=== PATIENT | female | born 1945 | race Caucasian/White ===

== ENCOUNTER → 2017-03-31 08:35 | Outpatient (CLI) | payer MEDICARE, OTHER, SELFPAY ==
[2017-03-31 09:39] LABS: Hematocrit 40.2 % (37-47); Hemoglobin 13.1 g/dl (12.0-15.0); Mean Corp Hgb Conc 32.6 g/gl (32-36); Mean Corpuscular Hgb 31.4 pg (27.0-32.0); Mean Corpuscular Volume 96.4 fL (81-99); Platelet Count 145 K/mm3 (150-450); RBC Distribution Width SD 45.8 fl (35.1-43.9); Red Blood Count 4.17 M/mm3 (4.2-5.4); White Blood Count 5.1 K/mm3 (4.4-11.0)
[2017-03-31 09:45] LABS: Scan Indicated on CBC? Y/N NO
[2017-03-31 10:00] LABS: Anion Gap 7 (5-15); BUN 19 mg/dL (7-18); BUN/Creat Ratio 27.7 RATIO (10-20); Calcium,Total 8.9 mg/dL (8.5-10.1); Chloride 105 mmol/L (98-107); Creatinine, Serum 0.69 mg/dL (0.55-1.02); EST Glomerular Filtration Rate 90 mL/min (>60); Est Glom Filt Rate - Afr Amer 109 mL/min (>60); Glucose 87 mg/dL (74-106); Potassium 3.9 mmol/L (3.5-5.1); Sodium Level 140 mmol/L (136-145)
== END ==
PROVIDERS: Family Provider Family Medicine; PCP Family Medicine; Visit Provider Internal Medicine Cardiovascular Disease
DX: I34.1 Nonrheumatic mitral (valve) prolapse (principal); R00.2 Palpitations; R06.02 Shortness of breath
CPT/HCPCS: 36415; 80048; 85027

== ENCOUNTER 2017-04-15 15:30 | Outpatient (RCR) | payer MEDICARE, OTHER, SELFPAY ==
--- NOTE | 2016-11-28 14:14 | HP.PTEVAL_ITS ---
Patient's Visit Information GRAHAM SHAH is a 71 year old F referred to Physical Therapy by Vicente Shah with a diagnosis of IMPINGEMENT LEFT SHOULDER. Date of Evaluation: 11/28/16 Physical Therapist: Jonny Miranda PT, - Visit Plan Frequency: 3x /Week Duration: 4 Weeks Plan: manual therapy G-H joint 2-3 ,scap mobs,AAROM/AROM/PROM ,STRENGTHENING RTC /SCAP - Subjective Subjective: This 71 y/o female presents to physical therapy with left shoulder impingment for 3 months. Patient reports no incidious onset of pain. Location of pain grossly referrs to bicep. Describe as ache . Patient reports loss of ROM ,ADL'S and self hygine activities above 90 degrees Pain affects sleeping. Denies parathesia/tingling.Seen chiropractor and PA for exercises. Patient has difficulty reaching behind back.Seen rachel Alarcon.No pain at rest , increases with activity. SOCIAL: . VOCATION: retired nurse - Pain Right Shoulder Pain Intensity (Out of 10): 6 Pain Intensity Range: 10 Comment: activity - Objective POSTURE: rounded shoulders head foward. PALAPTION:mild tender posterior capsule. NEURO: inact ,denies parathesia/tingling. AROM: left shoulder flexion 130 degrees ,abd 90 degrees ,ER 50 degrres,IR 45 degrres. right flexion /abd 160 degrees ,ER 90 degrees. CAPASULAR RESTRICTION: min/mod limited ANTERIOR/POSTERIOR/INFERIOR. SCAPULAR -HUMERAL FUNCTION: < 1:1. MMT: RTC 4/5, deltoid 4-/5,lateral 3+/5, LEFT with pain shoulder abd. FUNCTIONAL TEST: reach behind back L1 - Special Tests L Shoulder Neer - Impingement: Positive L Shoulder Potter Lucas - Impingement: Positive L Shoulder Yeargasons - SLAP: Negative L Shoulder AC Resisted - AC: Negative L Shoulder Shrug Sign - OA/Adhesive Capsulitis: Positive - Goals Goal 1:: Independant with HEP Goal Time Frame: 4-6 Weeks Goal 2:: Independant with posture for ADL'S Goal Time Frame: 4-6 Weeks Goal 3:: Improve AROM shoulder flexion /abd 150 degrees,ER 80 degrres IR 75 degrees to reach behind back and overhead activities by diminshing capsular restriction Goal Time Frame: 4-6 Weeks Goal 4:: Patient improve ablity to perfprm ADL'S self hygine above 90 degrees with min limiations Goal Time Frame: 4-6 Weeks Goal 5:: Increase strength 4/5 deltoid no pain for function - Rehabilitation Potential Physical Therapy Diagnosis: This patient has impingemnt left shoulder along with capsular restriction affects ROM ,. pain ,function with ADLS' thus benifit from skilled PT Rehabilitation Potential: Good - Anticipated Interventions Patient/Client Instruction: Educate patient on: Condition, Plan of Care For the Purpose of:: To decrease pain, To increase ROM, To improve muscle performance and motor function, To improve ability to perform ADL's, To increase tolerance to activity/condition/position, To improve ability of physical actions for home/community/work/leisure, To improve health of tissue, To decrease soft tissue restriction, To increase flexibility/ROM, To prevent re- injury, To improve tolerance to ADL's Therapeutic Exercise to Include: Strength training, Postural training, Flexibilty training, Passive ROM, Active ROM Comment: RTC For the Purpose of:: To decrease pain, To increase ROM, To improve muscle performance and motor function, To improve ability to perform ADL's, To increase tolerance to activity/condition/position, To improve performance and independence with ADL's, To improve ability of physical actions for home/ community/work/leisure, To improve health of tissue, To decrease soft tissue restriction, To increase flexibility/ROM, To prevent re-injury, To improve ability to perform tasks related to life management Manual Therapy Techniques to Include: Mobilization Comment: G-H JOINT2-3 For the Purpose of:: To decrease pain, To increase ROM, To improve nutrient delivery to tissue, To increase oxygenation perfusion, To improve health of tissue, To decrease soft tissue restriction, To increase flexibility/ROM IF ES: Yes Cryotherapy (ice pack, ice massage): Yes Thermo therapy (hot pack): Yes Ultrasound (thermal/non thermal): Yes For the Purpose of:: To decrease pain, To increase ROM, To improve nutrient delivery to tissue, To increase oxygenation perfusion, To improve health of tissue, To decrease soft tissue restriction Thank you for the opportunity to evaluate your patient. For Medicare and Medicare HMO plans, please review the plan of care and approve it. It will need to be FAXED BACK to us at [phone] for Medicare purposes. Please let me know if there are questions or concerns regarding this plan of care. Physician Signature: Date:
--- NOTE | 2016-12-19 13:59 | HP.PTREVAL_ITS ---
Vicente Matute, It has been my pleasure to treat GRAHAM MATUTE over the last 10 visits for IMPINGEMENT LEFT SHOULDER. Please see the progress note below for an update on the physical therapy plan of care! Subjective: Today my shoulder seems worse when I move arm to side,feel clicking in scapular region. Sleeping better. Objective/Function: POSTURE: rounded shoulders head foward. AROM: shoulder flexion 135 degrees,prom ER 70 degrees,abd in scapular plane 120 degrees PAIN WITH OP. MMT: RTC 4-/5 MILD PAIN ,DETOID 3+/5. + IMPINGEMENT. MILD/MOD CAPSULAR RESTRICTION Plan Plan: cont 3x wk for 3weeks Goals Goal 1:: Independant with HEP Goal Time Frame: 4-6 Weeks Goal 2:: Independant with posture for ADL'S Goal Time Frame: 4-6 Weeks Goal Progress: Goal Met Goal 3:: Improve AROM shoulder flexion /abd 150 degrees,ER 80 degrres IR 75 degrees to reach behind back and overhead activities by diminshing capsular restriction Goal Time Frame: 4-6 Weeks Goal 4:: Patient improve ablity to perfprm ADL'S self hygine above 90 degrees with min limiations Goal Time Frame: 4-6 Weeks Goal 5:: Increase strength 4/5 deltoid no pain for function Anticipated Interventions Patient/Client Instruction: Educate patient on: Condition, Plan of Care For the Purpose of:: To decrease pain, To increase ROM, To improve muscle performance and motor function, To improve ability to perform ADL's, To increase tolerance to activity/condition/position, To improve ability of physical actions for home/community/work/leisure, To improve health of tissue, To decrease soft tissue restriction, To increase flexibility/ROM, To prevent re- injury, To improve tolerance to ADL's Therapeutic Exercise to Include: Strength training, Postural training, Flexibilty training, Passive ROM, Active ROM Comment: RTC For the Purpose of:: To decrease pain, To increase ROM, To improve muscle performance and motor function, To improve ability to perform ADL's, To increase tolerance to activity/condition/position, To improve performance and independence with ADL's, To improve ability of physical actions for home/ community/work/leisure, To improve health of tissue, To decrease soft tissue restriction, To increase flexibility/ROM, To prevent re-injury, To improve ability to perform tasks related to life management Manual Therapy Techniques to Include: Mobilization Comment: G-H JOINT2-3 For the Purpose of:: To decrease pain, To increase ROM, To improve nutrient delivery to tissue, To increase oxygenation perfusion, To improve health of tissue, To decrease soft tissue restriction, To increase flexibility/ROM IF ES: Yes Cryotherapy (ice pack, ice massage): Yes Thermo therapy (hot pack): Yes Ultrasound (thermal/non thermal): Yes For the Purpose of:: To decrease pain, To increase ROM, To improve nutrient delivery to tissue, To increase oxygenation perfusion, To improve health of tissue, To decrease soft tissue restriction Please do not hesitate to contact me at [phone] by phone or Fax: if you have questions or concerns regarding this new plan of care! Sincerely, Jonny Miranda PT,
--- NOTE | 2017-01-20 14:35 | HP.PTREVAL_ITS ---
Vicente Matute, It has been my pleasure to treat GRAHAM MATUTE over the last 20 visits for IMPINGEMENT LEFT SHOULDER. Please see the progress note below for an update on the physical therapy plan of care! Subjective: Seen ortrhopedic Has new order ,- otherthan adhesive capsulities. Reviewed MRI - tear. MOBIC -pain is less and sleeping better Objective/Function: POSTURE: MILD THORACIC KYPHOSIS. NEURO: INACT. PALPATION: mild tender AC. AROM: shoulder flexion 140 flexion abd 145 with pain,ER 80 degrees,reach behind back L1. MMT: RTC 4/5 ,SUPRASPINATOUS 4-/5 mild pain, abterior deltoid 4-/5 ,lateral deltoid 3+/5 Plan Plan: cont 3xweek for 3weeks Goals Goal 1:: Independant with HEP Goal Time Frame: 4-6 Weeks Goal 2:: Independant with posture for ADL'S Goal Time Frame: 4-6 Weeks Goal Progress: Goal Met Goal 3:: Improve AROM shoulder flexion /abd 150 degrees,ER 80 degrres IR 75 degrees to reach behind back and overhead activities by diminshing capsular restriction Goal Time Frame: 4-6 Weeks Goal 4:: Patient improve ablity to perfprm ADL'S self hygine above 90 degrees with min limiations Goal Time Frame: 4-6 Weeks Goal 5:: Increase strength 4/5 deltoid no pain for function Anticipated Interventions Patient/Client Instruction: Educate patient on: Condition, Plan of Care For the Purpose of:: To decrease pain, To increase ROM, To improve muscle performance and motor function, To improve ability to perform ADL's, To increase tolerance to activity/condition/position, To improve ability of physical actions for home/community/work/leisure, To improve health of tissue, To decrease soft tissue restriction, To increase flexibility/ROM, To prevent re- injury, To improve tolerance to ADL's Therapeutic Exercise to Include: Strength training, Postural training, Flexibilty training, Passive ROM, Active ROM Comment: RTC For the Purpose of:: To decrease pain, To increase ROM, To improve muscle performance and motor function, To improve ability to perform ADL's, To increase tolerance to activity/condition/position, To improve performance and independence with ADL's, To improve ability of physical actions for home/ community/work/leisure, To improve health of tissue, To decrease soft tissue restriction, To increase flexibility/ROM, To prevent re-injury, To improve ability to perform tasks related to life management Manual Therapy Techniques to Include: Mobilization Comment: G-H JOINT2-3 For the Purpose of:: To decrease pain, To increase ROM, To improve nutrient delivery to tissue, To increase oxygenation perfusion, To improve health of tissue, To decrease soft tissue restriction, To increase flexibility/ROM IF ES: Yes Cryotherapy (ice pack, ice massage): Yes Thermo therapy (hot pack): Yes Ultrasound (thermal/non thermal): Yes For the Purpose of:: To decrease pain, To increase ROM, To improve nutrient delivery to tissue, To increase oxygenation perfusion, To improve health of tissue, To decrease soft tissue restriction Please do not hesitate to contact me at [phone] by phone or Fax: if you have questions or concerns regarding this new plan of care! Sincerely, Jonny Miranda, PT,
--- NOTE | 2017-02-14 09:17 | HP.PTREVAL_ITS ---
Vicente Matute, It has been my pleasure to treat GRAHAM MATUTE over the last 30 visits for IMPINGEMENT LEFT SHOULDER. Please see the progress note below for an update on the physical therapy plan of care! Subjective: Doing much better ..abdle to use arm for overhead activities,. Still wakes me up at night and in the morning. Objective/Function: POSTURE: mild foward posture ,rounded shoulders. AROM: shoulder flexion 150 degrees,abd 160 degrees ,ER 90. MMT: RTC 4/5 ,DELTOID 4-/ 5 mild pain lateral deltoid. FUNCTIONAL TEST: IR BEHIND BACK WFL Plan Plan: cont 3xweek for 3weeks Goals Goal 1:: Independant with HEP Goal Time Frame: 4-6 Weeks Goal Progress: Goal Met Goal 2:: Independant with posture for ADL'S Goal Time Frame: 4-6 Weeks Goal Progress: Progressing Goal 3:: Improve AROM shoulder flexion /abd 1600 degrees,ER 90 degrres IR 75 degrees to reach behind back and overhead activities by diminshing capsular restriction Goal Time Frame: 4-6 Weeks Goal Progress: Progressing Goal 4:: Patient improve ablity to perfprm ADL'S self hygine above 90 degrees with min limiations Goal Time Frame: 4-6 Weeks Goal 5:: Increase strength 4/5 deltoid no pain for function Goal Progress: Progressing Anticipated Interventions Patient/Client Instruction: Educate patient on: Condition, Plan of Care For the Purpose of:: To decrease pain, To increase ROM, To improve muscle performance and motor function, To improve ability to perform ADL's, To increase tolerance to activity/condition/position, To improve ability of physical actions for home/community/work/leisure, To improve health of tissue, To decrease soft tissue restriction, To increase flexibility/ROM, To prevent re- injury, To improve tolerance to ADL's Therapeutic Exercise to Include: Strength training, Postural training, Flexibilty training, Passive ROM, Active ROM Comment: RTC For the Purpose of:: To decrease pain, To increase ROM, To improve muscle performance and motor function, To improve ability to perform ADL's, To increase tolerance to activity/condition/position, To improve performance and independence with ADL's, To improve ability of physical actions for home/ community/work/leisure, To improve health of tissue, To decrease soft tissue restriction, To increase flexibility/ROM, To prevent re-injury, To improve ability to perform tasks related to life management Manual Therapy Techniques to Include: Mobilization Comment: G-H JOINT2-3 For the Purpose of:: To decrease pain, To increase ROM, To improve nutrient delivery to tissue, To increase oxygenation perfusion, To improve health of tissue, To decrease soft tissue restriction, To increase flexibility/ROM IF ES: Yes Cryotherapy (ice pack, ice massage): Yes Thermo therapy (hot pack): Yes Ultrasound (thermal/non thermal): Yes For the Purpose of:: To decrease pain, To increase ROM, To improve nutrient delivery to tissue, To increase oxygenation perfusion, To improve health of tissue, To decrease soft tissue restriction Please do not hesitate to contact me at [phone] by phone or Fax: if you have questions or concerns regarding this new plan of care! Sincerely, Jonny Miranda, PT,
--- NOTE | 2017-03-18 14:10 | HP.PTREVAL_ITS ---
Vicetne Matute, It has been my pleasure to treat GRAHAM MATUTE over the last 40 visits for IMPINGEMENT LEFT SHOULDER. Please see the progress note below for an update on the physical therapy plan of care! Subjective: More sore today in shoulder ,slept well. Doing ADL'S at home Objective/Function: POSTURE: muld thoracic kyphosis. NEURO: intact. PALPATION : : unremarkable. AROM: shoulder flexion 155 degrees,abd 145 degrees,ER 90 ,IR L1. MMT: infraspinatous 4/5,subscap. 4/5 supra 4/5,deltoid 4-/5 slight pain today ,scap 3+/5 Plan Plan: cont 2xweek for 4weeks Goals Goal 1:: Independant with HEP Goal Time Frame: 4-6 Weeks Goal Progress: Goal Met Goal 2:: Independant with posture for ADL'S Goal Time Frame: 4-6 Weeks Goal Progress: Progressing Goal 3:: Improve AROM shoulder flexion /abd 160 degrees,ER 90 degrres IR 75 degrees to reach behind back and overhead activities by diminshing capsular restriction Goal Time Frame: 4-6 Weeks Goal Progress: Progressing Goal 4:: Patient improve ablity to perfprm ADL'S self hygine above 90 degrees with min limiations Goal Time Frame: 4-6 Weeks Goal 5:: Increase strength 4/5 deltoid no pain for function Goal Progress: Progressing Anticipated Interventions Patient/Client Instruction: Educate patient on: Condition, Plan of Care For the Purpose of:: To decrease pain, To increase ROM, To improve muscle performance and motor function, To improve ability to perform ADL's, To increase tolerance to activity/condition/position, To improve ability of physical actions for home/community/work/leisure, To improve health of tissue, To decrease soft tissue restriction, To increase flexibility/ROM, To prevent re- injury, To improve tolerance to ADL's Therapeutic Exercise to Include: Strength training, Postural training, Flexibilty training, Passive ROM, Active ROM Comment: RTC For the Purpose of:: To decrease pain, To increase ROM, To improve muscle performance and motor function, To improve ability to perform ADL's, To increase tolerance to activity/condition/position, To improve performance and independence with ADL's, To improve ability of physical actions for home/ community/work/leisure, To improve health of tissue, To decrease soft tissue restriction, To increase flexibility/ROM, To prevent re-injury, To improve ability to perform tasks related to life management Manual Therapy Techniques to Include: Mobilization Comment: G-H JOINT2-3 For the Purpose of:: To decrease pain, To increase ROM, To improve nutrient delivery to tissue, To increase oxygenation perfusion, To improve health of tissue, To decrease soft tissue restriction, To increase flexibility/ROM IF ES: Yes Cryotherapy (ice pack, ice massage): Yes Thermo therapy (hot pack): Yes Ultrasound (thermal/non thermal): Yes For the Purpose of:: To decrease pain, To increase ROM, To improve nutrient delivery to tissue, To increase oxygenation perfusion, To improve health of tissue, To decrease soft tissue restriction Please do not hesitate to contact me at [phone] by phone or Fax: if you have questions or concerns regarding this new plan of care! Sincerely, Jonny Miranda, PT,
--- NOTE | 2017-05-07 13:32 | HP.PTDCNRP_ITS ---
HP - Discharge Summary (1) - Patient Information GRAHAM SHAH was seen in my office for initial evaluation on 11/28/16. The following Plan of Care was established for this patient: Initial Frequency: 3x /Week Initial Duration: 4 Weeks - Anticipated Interventions Patient/Client Instruction: Educate patient on: Condition, Plan of Care For the Purpose of:: To decrease pain, To increase ROM, To improve muscle performance and motor function, To improve ability to perform ADL's, To increase tolerance to activity/condition/position, To improve ability of physical actions for home/community/work/leisure, To improve health of tissue, To decrease soft tissue restriction, To increase flexibility/ROM, To prevent re- injury, To improve tolerance to ADL's Therapeutic Exercise to Include: Strength training, Postural training, Flexibilty training, Passive ROM, Active ROM For the Purpose of:: To decrease pain, To increase ROM, To improve muscle performance and motor function, To improve ability to perform ADL's, To increase tolerance to activity/condition/position, To improve performance and independence with ADL's, To improve ability of physical actions for home/ community/work/leisure, To improve health of tissue, To decrease soft tissue restriction, To increase flexibility/ROM, To prevent re-injury, To improve ability to perform tasks related to life management Manual Therapy Techniques to Include: Mobilization Comment: G-H JOINT2-3 For the Purpose of:: To decrease pain, To increase ROM, To improve nutrient delivery to tissue, To increase oxygenation perfusion, To improve health of tissue, To decrease soft tissue restriction, To increase flexibility/ROM IF ES: Yes Cryotherapy (ice pack, ice massage): Yes Thermo therapy (hot pack): Yes Ultrasound (thermal/non thermal): Yes For the Purpose of:: To decrease pain, To increase ROM, To improve nutrient delivery to tissue, To increase oxygenation perfusion, To improve health of tissue, To decrease soft tissue restriction This patient was last seen in our office 04/15/17. Pertinent comments regarding their Physical therapy will appear below: This patient seen for PT for left shoulder impingement with adhesive capaulitus focusing on manula therapy G-H JOINT MOBS,stretching,ROM,MODALITIES ,progressed strengthening,RTC/SCAPULAR . Patient also seen head orthopedic team physician and MRI. Patient met goals with ROM/STRENGTH for function. At this point I will be discontinuing this patient from physical therapy. I would be happy to see this patient again in the future if found appropriate by the physician. Thank you! Jonny Miranda, KATHY,
== END 2017-04-15 19:00 | disposition home or self-care (01) ==
LOC: PT 15:30
PROVIDERS: Family Provider Family Medicine; PCP Family Medicine; Visit Provider Family Medicine
DX: M75.02 Adhesive capsulitis of left shoulder (principal); M65.812 Other synovitis and tenosynovitis, left shoulder
CPT/HCPCS: 97014; 97035; 97110; 97140; 97162; 97530; G0283; G8984; G8985

== ENCOUNTER → 2017-09-03 12:32 | Outpatient (CLI) | payer MEDICARE, OTHER, SELFPAY ==
--- NOTE | 2017-09-03 12:56 | RAD_ITS ---
STUDY: X-RAY - ABDOMEN/PELVIS REASON FOR EXAM: Female, 71 years old. Flank pain TECHNIQUE: Single AP view of the abdomen / pelvis. COMPARISON: None. FINDINGS: Normal visualized lung bases. There is a moderate amount of colonic fecal material. There is no demonstrated free abdominal air. The visualized liver, spleen and kidneys are grossly normal in size and morphology. Normal soft tissue structures. Normal visualized osseous structures. RAD/Abdomen Single View IMPRESSION: Constipation. Electronically Signed: Luis Mckeon MD at 16:53 EDT , Service support ,
--- NOTE | 2017-09-03 12:57 | CT_ITS ---
STUDY: CT ABDOMEN AND PELVIS WITH CONTRAST REASON FOR EXAM: Female, 71 years old. Right inguinal pain RADIATION DOSAGE (If Supplied By Facility): CTDIvol = ( 14.5 ) mGy, DLP = ( 655.84 ) mGycm TECHNIQUE: Transaxial images were obtained from the dome of the diaphragm to the symphysis pubis without oral contrast. 80ML ml of Isovue 300 contrast was administered. Sagittal and coronal images were reconstructed. Individualized dose optimization techniques were used for this CT. COMPARISON: None. FINDINGS: The visualized lung bases are unremarkable. The visualized portions of the heart are within normal limits. Multiple low-density likely simple cysts scattered throughout both lobes of the liver except for one in the lower right lobe which has more enhancement pattern suggesting hemangioma. Normal gallbladder and extrahepatic biliary system. Normal spleen. Normal pancreas. Normal bilateral adrenal glands. Normal right kidney. Normal left kidney. Normal visualized stomach. Normal small intestine. There are a few scattered colonic diverticula. The appendix is visualized and appears normal. Appendix best seen on coronal recon image 38. Normal abdominal aorta. Normal inferior vena cava. Normal retroperitoneum. Normal urinary bladder. Normal visualized uterus. There are dilated pelvic vessels suggesting pelvic congestion syndrome Normal abdominal wall. There are mild degenerative changes of the visualized lumbar spine. CT/Abdomen/Pelvis WITH Contrast IMPRESSION: Multiple hypodense liver lesions, likely simple cysts except for one which has the appearance of a hemangioma in the posterior lateral right lobe. No CT evidence of an acute inflammatory process, normal appendix visualized. Sigmoid diverticulosis Dilated pelvic vessels Mild degenerative bony changes Electronically Signed: Francisco Rubio MD at 16:10 EDT , Service support ,
[2017-09-03 13:15] LABS: Absolute Neutrophil Count 9.1 X10^3/uL (2.0-7.7); Basophil# 0.01 X10^3/uL; Basophil% 0.1 % (0-1); Hematocrit 39.5 % (37-47); Hemoglobin 13.3 g/dl (12.0-15.0); Lymphocyte % 9.1 % (19-41); Mean Corp Hgb Conc 33.7 g/gl (32-36); Mean Platelet Vol. 10.7 fl (6.2-12.0); Monocyte# 0.84 X10^3/uL; Monocyte% 7.7 % (0-10); Neutrophil # 9.11 X10^3/uL (2.7-7.7); Platelet Count 133 K/mm3 (150-450); RBC Distribution Width CV 12.8 % (11.6-14.6); RBC Distribution Width SD 44.7 fl (35.1-43.9); Red Blood Count 4.16 M/mm3 (4.2-5.4)
[2017-09-03 13:17] LABS: POSITIVE COUNT NO; POSITIVE DIFFERENTIAL NO; POSITIVE MORPHOLOGY NO
[2017-09-03 13:30] LABS: ALB/GLOB Ratio 1.1 RATIO (0.9-2.4); AST(SGOT) 17 U/L (15-37); Alanine Aminotransfer ALT/SGPT 19 U/L (13-56); Albumin, Serum 3.8 g/dL (3.2-5.0); Alkaline Phosphatase 74 U/L (45-117); Anion Gap 8 (5-15); BUN 12 mg/dL (7-18); BUN/Creat Ratio 15.4 RATIO (10-20); Calcium,Total 9.1 mg/dL (8.5-10.1); Chloride 100 mmol/L (98-107); Creatinine, Serum 0.78 mg/dL (0.55-1.02); EST Glomerular Filtration Rate 78 mL/min (>60); Est Glom Filt Rate - Afr Amer 94 mL/min (>60); Globulin 3.4 g/dL (2.2-4.2); Glucose 105 mg/dL (74-106); Potassium 4.1 mmol/L (3.5-5.1); Protein, Total 7.2 g/dL (6.4-8.2); Sodium Level 136 mmol/L (136-145)
== END ==
PROVIDERS: Family Provider Family Medicine; PCP Family Medicine; Visit Provider Family Medicine
DX: K59.00 Constipation, unspecified (principal); K57.30 Diverticulosis of large intestine without perforation or abscess without bleeding; R50.9 Fever, unspecified
CPT/HCPCS: 36415; 74018; 74177; 80053; 85025; 87086; 87088; 87186; Q9967

== ENCOUNTER 2017-12-28 12:54 | Emergency (ER) | payer MEDICARE, OTHER, SELFPAY ==
[2017-12-28 12:56] VITALS: BP 127/83; PULSE 60; RESP 16; TEMP 36.3; O2SAT 99; BMI 26.5
--- NOTE | 2017-12-28 13:23 | RAD_ITS ---
STUDY: X-RAY - RIGHT KNEE REASON FOR EXAM: Female, 72 years old. Right knee pain today after going downstairs. TECHNIQUE: The view(s) of the knee. COMPARISON: None. FINDINGS: Normal visualized distal femur. Normal visualized proximal tibia and fibula. Normal proximal tibiofibular articulation. There is mild degenerative arthrosis of the medial femorotibial compartment. Normal lateral femorotibial compartment. There is mild degenerative arthrosis of the patellofemoral articulation. Acquired The soft tissue structures are unremarkable. RAD/Knee 3 Views IMPRESSION: Minimal degenerative arthrosis. Electronically Signed: Viraj Serrano DO at 14:41 EST Tel [phone], Service support ,
--- NOTE | 2017-12-28 13:26 | ED.VISSUMM ---
"- ER Visit Summary Date of Service: 12/28/17 Chief Complaint: Right knee pain History of Present Illness: The patient is a 72 F history of mitral valve prolapse and a right posterior knee Wilsl's cyst. Patient states she had a near fall about 2 weeks ago has been having pain in her right knee. She has a known Wills's cyst. She is on the anti-inflammatory meloxicam. Today she was walking down steps at [employer] and had sudden onset of right posterior knee pain. No fall. No injury. No fever. No redness. She has never had near her right lower extremity surgery. It hurts with movement of the knee. Physical Examination: Well-appearing older female. Vital signs are stable. She is afebrile. She does not look septic or toxic. She is in no distress. Her is at bedside. H EENT exam unremarkable. Lungs clear to auscultation bilaterally. Heart regular rate and rhythm. Abdomen soft and nontender. Both upper extremities and left lower extremity are nontender. Normal range of motion. Calves are nontender without edema or cords. Dorsi plantar flexion intact. She is a normal DP pulse to her right foot. Normal touch sensation. Normal motor strength. Her right knee she has pain in the posterior aspect of the knee in the popliteal fossa. She has pain with range of motion. There is no significant effusion. No no redness or warmth. No bony deformity. Right hip is nontender. Test Results: Right knee x-ray mild degenerative arthrosis per the radiologist. My review the x-ray pretty unremarkable. I went over the films with the patient and her . Emergency Department Course and Treatment: Patient treated with 1 p.o. [place] Patient is doing better on repeat exam at 15:20 pm. She has a walker at home. Treatment Plan: Discharged home. Follow-up with Dr. Tyler Anguiano of orthopedics. [place] for pain 20. Disposition: Discharge Impression: Acute right knee pain History of Wills's cyst This note was generated with [employer] dictation software. It may contain incorrect words, spelling, and punctuation that were not noted in review of the chart prior to signing ED Disposition - Plan for ED Patient: Chief Complaint: Lower Extremity Injury Referrals: Vicente Matute MD [Primary Care Provider] -"
--- NOTE | 2017-12-28 13:44 | ED.DCSUM_ITS ---
- ER Visit Summary Date of Service: 12/28/17 Chief Complaint: Right knee pain History of Present Illness: The patient is a 72 F history of mitral valve prolapse and a right posterior knee Wills's cyst. Patient states she had a near fall about 2 weeks ago has been having pain in her right knee. She has a known Wills's cyst. She is on the anti-inflammatory meloxicam. Today she was walking down steps at [employer] and had sudden onset of right posterior knee pain. No fall. No injury. No fever. No redness. She has never had near her right lower extremity surgery. It hurts with movement of the knee. Physical Examination: Well-appearing older female. Vital signs are stable. She is afebrile. She does not look septic or toxic. She is in no distress. Her is at bedside. H EENT exam unremarkable. Lungs clear to auscultation bilaterally. Heart regular rate and rhythm. Abdomen soft and nontender. Both upper extremities and left lower extremity are nontender. Normal range of motion. Calves are nontender without edema or cords. Dorsi plantar flexion intact. She is a normal DP pulse to her right foot. Normal touch sensation. Normal motor strength. Her right knee she has pain in the posterior aspect of the knee in the popliteal fossa. She has pain with range of motion. There is no significant effusion. No no redness or warmth. No bony deformity. Right hip is nontender. Test Results: Right knee x-ray mild degenerative arthrosis per the radiologist. My review the x-ray pretty unremarkable. I went over the films with the patient and her . Emergency Department Course and Treatment: Patient treated with 1 p.o. [place] Patient is doing better on repeat exam at 15:20 pm. She has a walker at home. Treatment Plan: Discharged home. Follow-up with Dr. Tyler Anguiano of orthopedics. [place] for pain 20. Disposition: Discharge Impression: Acute right knee pain History of Wills's cyst This note was generated with [employer] dictation software. It may contain incorrect words, spelling, and punctuation that were not noted in review of the chart prior to signing ED Disposition - Plan for ED Patient: Chief Complaint: Lower Extremity Injury Referrals: Vicente Matute MD [Primary Care Provider] -
[2017-12-28] MEDS: HYDROcodone Bitartrate/Apap 5/325 Tablet PO (13:55)
--- NOTE | 2017-12-28 15:27 | ED.DEP ---
ED Disposition - Plan for ED Patient: Disposition: Home or Assisted Living Chief Complaint: Lower Extremity Injury Instructions: ED Knee Pain [facility] Prescriptions: Hydrocodone Bitart/Apap 5-325 [[place] 5MG-325MG] 1 - 2 tab PO Q4H PRN PRN 7 Days #20 tab PRN Reason: Pain Referrals: Vicente Matute MD [Primary Care Provider] - As Needed Aroldo Anguiano MD [STAFF PHYSICIAN] - As soon as possible Additional Instructions: Ice and elevate right knee to decrease pain and swelling. Either usual meloxicam or Motrin for pain and inflammation. [place] for more severe pain. Follow-up with either the orthopedic doctor or your primary care physician for further evaluation of your knee and possible MRI if not improving.
--- NOTE | 2017-12-28 15:32 | DCINST.ED_ITS ---
ED Disposition - Plan for ED Patient: Disposition: Home or Assisted Living Chief Complaint: Lower Extremity Injury Instructions: ED Knee Pain [facility] Prescriptions: Hydrocodone Bitart/Apap 5-325 [[place] 5MG-325MG] 1 - 2 tab PO Q4H PRN PRN 7 Days #20 tab PRN Reason: Pain Referrals: Vicente Matute MD [Primary Care Provider] - As Needed Aroldo Anguiano MD [STAFF PHYSICIAN] - As soon as possible Additional Instructions: Ice and elevate right knee to decrease pain and swelling. Either usual meloxicam or Motrin for pain and inflammation. [place] for more severe pain. Follow-up with either the orthopedic doctor or your primary care physician for further evaluation of your knee and possible MRI if not improving.
[2017-12-28 15:50] VITALS: BP 124/71; PULSE 65; RESP 15; O2SAT 98
== END 2017-12-28 15:51 | disposition home or self-care (01) ==
PROVIDERS: Emergency Provider Emergency Medicine; Family Provider Family Medicine; PCP Family Medicine
DX: M17.11 Unilateral primary osteoarthritis, right knee (principal); M71.21 Synovial cyst of popliteal space [Baker], right knee; I34.1 Nonrheumatic mitral (valve) prolapse
CPT/HCPCS: 73562; 99284

== ENCOUNTER → 2018-07-21 09:47 | Outpatient (CLI) | payer MEDICARE, OTHER, SELFPAY ==
[2018-07-08 15:34] VITALS: BMI 24.5
--- NOTE | 2018-07-21 09:49 | STEWCON_ITS ---
Reason For Study: CHEST PAIN Stress Results Protocol: Stress Echocardiogram Maximum Predicted HR: 149 bpm Target HR: 127 bpm % Maximum Predicted HR: 109 % DurationHeart Rate Stage (mm:ss) (bpm) BP Comment BASELINE 59 118/70DILUTED DEFINITY 5CC USED DURING STRESS MARSHA PROTOCOL- STAGE 1 3:00 117 120/70NO CP MARSHA PROTOCOL- STAGE 2 3:00 142 118/52SL SOB MARSHA PROTOCOL- STAGE 3 2:15 162 124/62SL SOB, SL CHEST DISCOMFORT,RARE PVCS RECOVERY 81 100/70NO FURTHER CP, ONE VENTRICULAR TRIPLET, COUPLET Stress Duration: 8:15 mm:ss Maximum Stress HR: 162 bpm METS: 9 Baseline Echocardiogram Findings Stress Echo Wall motion Data Resting WM Intermediate WM Stress WM Resting Wall Motion Wall Motion Stress All segments Normal. Anterio-Basal: Hyperkinetic. Ejection Fraction 60 %. Lateral-Basal: Hyperkinetic. Posterior-Basal: Hyperkinetic. Infero-Basal: Hyperkinetic. Basal inferoseptal: Hyperkinetic. Basal anteroseptal: Hyperkinetic. Mid-Anterior : Hyperkinetic. Mid-Lateral : Hyperkinetic. Mid-Posterior: Hyperkinetic. Mid-Inferior: Hypokinetic. Mid-inferoseptal : Hypokinetic. Mid-anteroseptal : Hypokinetic. Anterior [place] : Hyperkinetic. Inferior [place] : Hypokinetic. Lateral [place] : Hyperkinetic. Septall [place] : Hyperkinetic. Ejection Fraction 70 %. Stress Results Heart rate response: appropriate Blodd pressure response: normal resting BP - appropriate response Arrhythmias: occasional PVCs pretest, during exercise, and recovery; isolated ventricular triplet during recovery Functional capacity: good Stopped secondary to: dyspnea. EKG Data Baseline ECG: ectopic atrial rhythm; PVCs; NS T wave abnormality. Exercise ECG: approximately [address] segment depression in leads II, III, aVF, and V3- V6 with ocntinued nonspecific T wave abnormality with resolution towards baseline beginning < 1 minute in recovery. Symptoms with Stress No c/o chest discomfort during exercise / recovery. Interpretation Summary ABNORMAL (ADEQUATE) STRESS ECHOCARDIOGRAM Ordering Physician: Krishna Goss Referring Physician: Krishna Goss Performed By: Bridgett Wick [facility]
--- NOTE | 2018-07-21 09:49 | CT_ITS ---
STUDY: CT CHEST WITH CONTRAST REASON FOR EXAM: Female, 72 years old. Chest and back pain for 6 weeks. RADIATION DOSAGE (If Supplied By Facility): CTDIvol = ( 11.28 ) mGy, DLP = ( 247.45 ) mGycm TECHNIQUE: Transaxial imaging was performed following intravenous administration of 100 IV Isovue 300. Individualized dose optimization techniques were used for this CT. COMPARISON: Chest x-ray March 21, 2016. FINDINGS: The lungs are normal. There is no demonstrated pleural abnormality. Normal heart and pericardium. Normal mediastinum. Normal hilar regions. Normal enhanced pulmonary arteries. Normal aorta arch and descending thoracic aorta. Normal osseous structures. Multiple well-circumscribed hepatic cysts , the largest measuring 2.5 x 2.5 cm and clearly a simple cyst. CT/Chest WITH Contrast IMPRESSION: Normal enhanced CT Chest examination. Multiple hepatic cysts which are likely incidental findings. Electronically Signed: Panfilo Garcia MD at 4:56 EDT , Service support ,
== END ==
PROVIDERS: Family Provider Family Medicine; PCP Family Medicine; Referring Provider Internal Medicine Cardiovascular Disease; Visit Provider Internal Medicine Cardiovascular Disease
DX: I34.1 Nonrheumatic mitral (valve) prolapse (principal); I49.1 Atrial premature depolarization; I49.3 Ventricular premature depolarization; R07.9 Chest pain, unspecified
CPT/HCPCS: 71260; 93017; 93350; Q9957; Q9967; A4216; C8928

== ENCOUNTER → 2018-08-03 10:44 | Outpatient (CLI) | payer MEDICARE, OTHER, SELFPAY ==
[2018-07-08 15:34] VITALS: BMI 24.5
[2018-08-03 07:22] VITALS: BMI 24.5
--- NOTE | 2018-08-03 10:45 | ECHOD_ITS ---
Reason For Study: MVP Procedure This was a 2D Doppler, Color Flow transthoracic echocardiogram. Exam performed in department. Left Ventricle Normal LV size. Left ventricular systolic function is normal. The estimated ejection fraction is 60 %. No regional wall motion abnormalities noted. Right Ventricle Normal RV size. Normal systolic function. Atria The left atrium is moderately enlarged. The right atrium is moderately enlarged. No doppler evidence for ASD. Mitral Valve There is no mitral annular calcification. Moderate diffuse mitral valve thickening. Moderate mitral valve prolapse. Mild-Moderate (1-2+) mitral valve insufficiency. Tricuspid Valve Normal tricuspid valve. Moderate (2+) tricuspid valve insufficiency. Right ventricular systolic pressure estimated to be 27 mmHg. Aortic Valve Trisinus/trileaflet aortic valve. Normal aortic valve. Pulmonic Valve The pulmonic valve is not well visualized. Mild (1+) pulmonic valve insufficiency. Great Vessels Normal sized aortic root. Pericardium/Pleural No pericardial effusion. MMode/2D Measurements & Calculations LVIDd: 4.9 cm IVSd: 0.77 cm Ao root diam: 3.3 cm LVIDs: 2.6 cm LVPWd: 0.83 cm LA dimension: 3.6 cm RVDd: 3.5 cm FS: 46.2 % LAV(MOD-bp): 62.1 ml LA A4 area: 18.7 cm2 RA A4 area: 18.7 cm2 LAV(MOD-bp) Indexed: 39.7 ml/m2 LAV(MOD-sp2): 74.3 ml LAV(MOD-sp4): 50.9 ml Time Measurements MV dec time: 0.28 sec Doppler Measurements & Calculations MV E max gutierrez: 43.4 cm/sec Lat Peak E' Gutierrez: 10.1 cm/sec Med Peak E' Gutierrez: 8.9 cm/sec MV A max gutierrez: 39.9 cm/sec E/E' lat: 4.3 E/E' med: 4.9 MV E/A: 1.1 MV V2 max: 53.9 cm/sec MV P1/2t max gutierrez: 53.9 cm/sec Ao V2 max: 89.3 cm/sec MV max P.2 mmHg MV P1/2t: 129.2 msec Ao max P.2 mmHg MV V2 mean: 28.8 cm/sec MV dec slope: 122.2 cm/sec2 MV mean P.39 mmHg MVA(P1/2t): 1.7 cm2 MV V2 VTI: 22.3 cm LV V1 max: 65.7 cm/sec PA V2 max: 69.0 cm/sec PI end-d gutierrez: 73.1 cm/sec LV V1 max P.7 mmHg TR max gutierrez: 244.1 cm/sec TR max P.8 mmHg Interpretation Summary Left ventricular systolic function is normal. The estimated ejection fraction is 60 %. The left atrium is moderately enlarged. The right atrium is moderately enlarged. Moderate diffuse mitral valve thickening. Moderate mitral valve prolapse. Mild-Moderate (1-2+) mitral valve insufficiency. Moderate (2+) tricuspid valve insufficiency. Mild (1+) pulmonic valve insufficiency. Right ventricular systolic pressure estimated to be 27 mmHg. Transmitral diastolic flow velocities suggest diastolic dysfunction (pseudonormal pattern). Ordering Physician: Krishna Goss Referring Physician: Krishna Goss Performed By: Tahir Boggs RCS
== END ==
PROVIDERS: Family Provider Family Medicine; PCP Family Medicine; Referring Provider Internal Medicine Cardiovascular Disease; Visit Provider Internal Medicine Cardiovascular Disease
DX: I34.1 Nonrheumatic mitral (valve) prolapse (principal); I36.1 Nonrheumatic tricuspid (valve) insufficiency; I49.1 Atrial premature depolarization; I49.3 Ventricular premature depolarization; R07.9 Chest pain, unspecified
CPT/HCPCS: 93306

== ENCOUNTER 2018-08-04 07:50 | Day surgery (SDC) | payer MEDICARE, OTHER, SELFPAY ==
[2018-07-08 15:34] VITALS: BMI 24.5
[2018-07-23 10:36] LABS: Hematocrit 41.3 % (37-47); Hemoglobin 14.2 g/dl (12.0-15.0); Mean Corp Hgb Conc 34.4 g/gl (32-36); Mean Corpuscular Hgb 32.1 pg (27.0-32.0); Mean Corpuscular Volume 93.4 fL (81-99); Mean Platelet Vol. 11.4 fl (6.2-12.0); Platelet Count 148 K/mm3 (150-450); RBC Distribution Width CV 12.5 % (11.6-14.6); RBC Distribution Width SD 41.5 fl (35.1-43.9); Red Blood Count 4.42 M/mm3 (4.2-5.4); Scan Indicated on CBC? Y/N NO; White Blood Count 5.3 K/mm3 (4.4-11.0)
[2018-07-23 10:51] LABS: Partial Thromboplast Time 33.3 Seconds (24.1-36.2); Prothrombin Time (Protime)PT. 13.1 SECONDS (11.7-14.9)
[2018-07-23 11:53] LABS: Anion Gap 8 (5-15); BUN 15 mg/dL (7-18); BUN/Creat Ratio 19.7 RATIO (10-20); Calcium,Total 9.2 mg/dL (8.5-10.1); Chloride 106 mmol/L (98-107); Creatinine, Serum 0.76 mg/dL (0.55-1.02); EST Glomerular Filtration Rate 80 mL/min (>60); Est Glom Filt Rate - Afr Amer 96 mL/min (>60); Glucose 74 mg/dL (74-106); Potassium 4.5 mmol/L (3.5-5.1); Sodium Level 139 mmol/L (136-145)
[2018-08-03 07:22] VITALS: BMI 24.5
--- NOTE | 2018-08-04 09:20 | PCM.HP.BLA ---
Problem List (1) Chest pain Status: Chronic (2) Abnormal stress echocardiogram Status: Chronic (3) Nonrheumatic mitral (valve) prolapse Status: Chronic History and Physical Date of Admission: 08/04/18 H&P addendum: The following is an H&P addendum to the patient's recent outpatient cardiovascular note from 07-08-18. I have examined the patient the following changes are noted: The patient has subsequently undergone evaluation with a stress echocardiogram. This was considered abnormal. The patient was then recommended for further evaluation and care with diagnostic cardiac catheterization. The procedure and risks were discussed with the patient. The patient was agreeable to this approach. This note was generated with [employer] dictation software. It may contain incorrect words, spelling, and punctuation that were not noted in checking the note before signing.
--- NOTE | 2018-08-04 10:02 | CL.D_ITS ---
Patient Name: GRAHAM SHAH Study Date: 08/04/2018 Performing: Krishna Goss MD Ht: 61.81 inches 157 cm : 1945 Wt: 134.48 lbs 61 kg Age: 72 Gender: female BSA: 1.61 PROCEDURE(S) PERFORMED [id number]-HGD/COR/LV CLINICAL PROFILE AND INDICATIONS Indications: Suspected CAD Heart Failure: None Stress/Imaging Date: 07/21/2018Stress Echocardiogram: Positive Angina Classification Anginal Classification w/in 2 Weeks: CCS III CAD Presentations: Other: chest pain / shortness of breath CONCLUSIONS Elevated Left Ventricular End Diastolic Pressure Normal LV size, wall motion,and systolic function LVEF: by LV gram 55 % Normal coronary arteries Mitral Valve Prolapse Mild to Moderate RECOMMENDATIONS Risk factor modification Medical therapy DESCRIPTION OF PROCEDURE The patient arrived to the procedure lab. The risks and benefits of the procedure as well as a full d escription of our services here and current unavailability of surgical backup were fully explained to the patient and/or their significant other prior to the catheterization. The Timeout was completed, verifying the correct patient and procedure. The patient's procedural site was prepped and draped in the usual fashion. Local anesthetic was given subcutaneously to right groin region with Lidocaine 2%. Using a modified Seldinger technique, arterial access was obtained via the right femoral artery, a 4 Fr sheath was inserted Left Coronary Artery selective angiography was performed in multiple views us ing a 4 Fr. JL5 catheter. Right Coronary Artery selective angiography was then performed in multiple views using a 4 Fr. 3DRC catheter. Left Ventriculography was performed in GARNER projection using a 4 Fr . Pigtail catheter. LV to AO pullback pressures were then recorded.The arterial sheath was pulled and manual compression applied until hemostasis is achieved. CORONARY ANGIOGRAPHY DOMINANCE: Left Dominant LEFT HEART ASSESSMENT Left Ventricular Ejection Fraction: by LV Gram 55 % LV wall motion not assessed Elevated Left Ventricular End Diastolic Pressure LVEDP: 16 mmHg LEFT MAIN: Angiographically normal LEFT ANTERIOR DESCENDING ARTERY: Angiographically normal CIRCUMFLEX ARTERY: Angiographically normal RAMUS: Angiographically normal RIGHT CORONARY ARTERY: Angiographically normal VALVE FINDINGS: Normal Aortic Valve function Mitral Valve Prolapse Mild to Moderate AORTIC ROOT: Angiographically normal COMPLICATIONS No Complications PROCEDURE MEDICATIONS Versed 1 mg IV Oxygen: 2 L/min via nasal cannula SUMMARY OF HEMODYNAMIC DATA Time AIR REST ECG 08:12:50 AO 105/63 (84) SA 09:36:43 LV 118/0, 19 09:42:42 LV 108/0, 16 09:42:48 LV 113/-6, 18 09:43:50 LV 117/-6, 18 09:43:57 LVp 116/-7, 15 09:44:03 AOp 117/59 (85) 09:44:08 Signed By Krishna Goss MD On 08/04/2018 10:01:32 Krishna Goss MD
--- NOTE | 2018-08-04 16:24 | HP.PCM_ITS ---
Problem List (1) Chest pain Status: Chronic (2) Abnormal stress echocardiogram Status: Chronic (3) Nonrheumatic mitral (valve) prolapse Status: Chronic History and Physical Date of Admission: 08/04/18 [facility] History of Present Illness Details: GRAHAM SHAH, is a 72 F who presents to the office today for a cardiovascular follow-up. She has a history of mitral valve prolapse, mitral valve regurgitation, PACs, and PVCs. At the present time she states her main concern has been back discomfort which is radiating towards her chest and becoming more prominent in her chest. She does not report radiation to her upper extremities, neck, or jaw. She states that if this can leave her with the sensation of being short of breath. She has not had orthopnea or PND or worsening peripheral pitting edema. She does occasionally note a flutter in her chest. There has been no near syncope or syncope. She states she is concerned based upon having a friend who recently returned from a vacation who is otherwise healthy and now within a short period of time is been diagnosed with CAD. She states she has required CABG. She does not recall any other exertional physical activity prior to the onset of her symptoms. She states her symptoms wax and wane but for the most part have been somewhat present for at least the last 10 days. She had an ECG in the office. She was noted to be in sinus rhythm with a left axis deviation and a possible left anterior fascicular block with poor R wave progression and nonspecific T wave abnormality. In comparison to previous ECG there are similar type changes. Intake Vital Signs 07/08/18 Height 5 ft 2 in 07/08/18 Weight: 134 lb 07/08/18 Body Mass Index (BMI) 24.5 07/08/18 Blood Pressure 92/60 07/08/18 Blood Pressure Location Lt brachial 07/08/18 Blood Pressure Position Sitting 07/08/18 Respiratory Rate 16 07/08/18 Pulse Rate 60 07/08/18 Pulse Source Auscultation Intake Visit Reasons: 1 Y FU [employer] Required: No Accompanied by: Self Allergies No Known Allergies Allergy (Verified 07/08/18 15:35) Medications coenzyme Q10 100 mg capsule 100 mg PO QDAY 06/25/17 [History Confirmed 07/08/18] omega-3 fatty acids 1,000 mg capsule 1,000 mg PO QDAY 05/15/18 [History Confirme d 07/08/18] amoxicillin 500 mg tablet 2,000 mg PO .COMPLEX #4 tab 06/30/18 [Rx Confirmed 07/08/18] glucosamine sulfate 500 mg tablet 1,000 mg PO QHS tab 07/08/18 [History Confirmed 07/08/18] lactobacillus combination no.8 3 billion cell capsule 3,000 mmu cells PO DAILY 07/08/18 [History Confirmed 07/08/18] metoprolol succinate ER 25 mg tablet,extended release 24 hr 12.5 mg PO QDAY tab 07/08/18 [History] [facility] Medical History Non-rheumatic tricuspid valve insufficiency (Acute) Nonrheumatic mitral (valve) insufficiency (Acute) Palpitations (Acute) Nonrheumatic mitral (valve) prolapse (Chronic) SOB (shortness of breath) (Acute) Chest pain (Acute) Atrial premature depolarization (Chronic) Ventricular premature depolarization (Chronic) Surgical History History of tonsillectomy and adenoidectomy (Resolved) Family History Father CVA (cerebral vascular accident) Mother No problems noted. Social History Smoking Status: Never smoker alcohol intake: never substance use type: does not use what type of physical activity do you participate in: none, walking frequency: daily ROS Const Const: Negative for fatigue, weakness, frequent falls, excessive sweating, weight gain or weight loss Eyes Eyes: Negative for transient loss of vision, blurry vision or change in vision ENT ENT: Positive for balance problems (slight unsteadiness); negative for dizziness Cardio Chest Pain: Yes Character: other (pressure midstrnal and aching in back b/w shoulder blades) Location: mid sternal Duration: continuous Palpitations: Yes (occasional) feels like its: fast, other (fluttery) Edema: None Muscle aches with walking: None Resp Respiratory: Positive for SOB with activity (baseline); negative for SOB at rest GI GI: Negative vomiting or vomiting blood/hematemesis : Negative for hematuria Musc Musc: Positive for balance problems (slight unsteadiness); negative for muscle aches/ myalgia, muscle weakness or joint pain Skin Skin: Negative non-healing lesions or rash Neuro Neuro: Negative for dizziness, lightheadedness, orthostatic symptoms, frequent falls, weakness or blurry vision Tulio Hematologic/Lymphatic: Negative for easy bleeding Endo Endo: Negative for fatigue or excessive sweating Psych Psych: Negative for anxiety or depression Allergy Allergy/Immunology: Negative for hives, Negative for rash Cardiology Exam Const Appearance: cooperative, healthy appearing, no acute distress, well developed and well groomed Nutritional Appearance: thin Orientation: alert, awake and oriented x3 Head Head: normal to inspection, normocephalic and atraumatic Ears: hearing grossly normal bilaterally Nose: external nose normal Face and Sinus: face symmetric Mouth: moist mucous membranes Teeth and gingiva: fair dentition Eyes Eyelids: eyelids normal Conjunctivae: conjunctivae normal Pupils: PERRL EOM: EOM intact bilaterally Neck Neck: normal visual inspection, full ROM and no JVD Carotids: Negative bruit Neck Mass: Negative Neck mass Chest Chest inspection: normal inspection of the chest and symmetric chest movement Auscultation: Bilateral: Clear to Auscultation Cardio Palpation: normal PMI Rate: regular rate Rhythm: regular rhythm Heart sounds: S1 normal and S2 normal; negative rub, gallop or murmur GI GI: normal to inspection, soft and bowel sounds present; negative tender Neuro General: alert, awake, oriented x3 and moves all extremities Skin Skin: no rashes or lesions noted Extremities Pulses: Normal: Right Posterior Tibial Pulse, Left Posterior Tibial Pulse, Right Radial Pulse, Left Radial Pulse Lower Extremity Edema: None: Bilateral Psych Psychological: normal affect Assessment & Plan 1. Nonrheumatic mitral (valve) prolapse I34.1 Plan At the present time she will continue outpatient follow-up. It is been over 2 years since her last transthoracic echocardiogram to follow her mitral valve prolapse and MR. Thus she will be established for a follow-up echocardiographic study. Orders Orders: Chest WITH Contrast Today Echo Complete Today Stress Test Echo W/Contrast Today 2. Palpitations R00.2 Plan She does have occasional flutters. This may be related to her previous findings of PACs and PVCs. She will continue her beta-beverly therapy. Orders Orders: 12 Lead EKG performed by BMS Today 3. Premature atrial complexes I49.1 Plan She does have PACs and PVCs. Again she will continue her beta-beverly therapy. Orders Orders: Chest WITH Contrast Today Echo Complete Today Stress Test Echo W/Contrast Today 4. Premature ventricular complex I49.3 Plan She will continue evaluation care as noted above. Orders Orders: Chest WITH Contrast Today Echo Complete Today Stress Test Echo W/Contrast Today 5. Chest pain, unspecified R07.9 Plan Based upon her chest discomfort she will undergo to further studies. She will have a follow-up exercise tolerance test/imaging study such as a stress echocardiogram to compare to her previous stress echocardiogram to evaluate for any obvious stress-induced myocardial ischemia that would warrant further evaluation in the cardiac catheterization laboratory. In the meantime based upon concerns of her\interscapular discomfort superimposed on her history of mitral valve prolapse she will have further evaluation with a chest CT scan. This will be to evaluate for any thoracic aortic disease it would be contributing to her symptoms. Orders Orders: 12 Lead EKG performed by BMS Today Chest WITH Contrast Today Echo Complete Today Stress Test Echo W/Contrast Today Plan Detail Other Orders Orders: Echo Complete Today I36.1 Additional Comments If her studies are otherwise unremarkable then she may need further noncardiac evaluation of her discomfort. Also of her studies are unremarkable she will be scheduled for outpatient follow-up in approximately 1 year. Thank you for allowing me to participate in the care of your patient. Please don't hesitate to call if any issues arise. This note was generated using a voice recognition system and there may be incorrect words, spelling or punctuation that were not noted when reviewing the office note prior to saving. Follow Up 1 Year (PF) I have examined the patient the following changes are noted: The patient has subsequently undergone evaluation with a stress echocardiogram. This was considered abnormal. The patient was then recommended for further evaluation and care with diagnostic cardiac catheterization. The procedure and risks were discussed with the patient. The patient was agreeable to this approach. This note was generated with [employer] dictation software. It may contain incorrect words, spelling, and punctuation that were not noted in checking the note before signing.
== END 2018-08-04 14:20 | disposition home or self-care (01) ==
LOC: CLSP 07:51
PROVIDERS: Family Provider Family Medicine; PCP Family Medicine; Referring Provider Internal Medicine Cardiovascular Disease; Visit Provider Internal Medicine Cardiovascular Disease
DX: I34.1 Nonrheumatic mitral (valve) prolapse (principal); I49.1 Atrial premature depolarization; I49.3 Ventricular premature depolarization; R00.2 Palpitations; R07.9 Chest pain, unspecified; R94.39 Abnormal result of other cardiovascular function study; Z79.899 Other long term (current) drug therapy
CPT/HCPCS: 36415; 80048; 85027; 85610; 85730; 93458; 99152; 99153; J7040; C1769; C1894; Q9967

== ENCOUNTER → 2019-08-05 08:13 | Outpatient (CLI) | payer MEDICARE, OTHER, SELFPAY ==
[2019-06-10 14:57] VITALS: BMI 24.9
[2019-08-05 09:13] LABS: Hematocrit 41.5 % (37-47); Hemoglobin 13.7 g/dL (12.0-15.0); Mean Corpuscular Hgb 31.9 pg (27.0-32.0); Mean Corpuscular Volume 96.7 fL (81-99); Mean Platelet Vol. 11.3 fl (6.2-12.0); Platelet Count 151 K/mm3 (150-450); RBC Distribution Width CV 12.7 % (11.6-14.6); RBC Distribution Width SD 45.1 fl (35.1-43.9); Red Blood Count 4.29 M/mm3 (4.2-5.4)
[2019-08-05 09:36] LABS: AST(SGOT) 18 U/L (15-37); Alanine Aminotransfer ALT/SGPT 21 U/L (13-56); Albumin, Serum 4.1 g/dL (3.2-5.0); Alkaline Phosphatase 62 U/L (45-117); Anion Gap 7 (5-15); BUN 20 mg/dL (7-18); BUN/Creat Ratio 26.2 RATIO (10-20); Bilirubin, Direct 0.22 mg/dL (0.00-0.30); Calcium,Total 9.3 mg/dL (8.5-10.1); Chloride 105 mmol/L (98-107); Cholesterol 202 mg/dL (200); Creatinine, Serum 0.76 mg/dL (0.55-1.02); EST Glomerular Filtration Rate 79 mL/min (>60); Est Glom Filt Rate - Afr Amer 96 mL/min (>60); Globulin 3.1 g/dL (2.2-4.2); Glucose 84 mg/dL (74-106); High Density Lipoprotein 80 mg/dL; Potassium 3.8 mmol/L (3.5-5.1); Protein, Total 7.2 g/dL (6.4-8.2); Sodium Level 140 mmol/L (136-145); Triglycerides 68 mg/dL; Very Low Density Lipoprotein 14 mg/dL (5-40)
== END ==
PROVIDERS: PCP Family Medicine; Referring Provider Internal Medicine Cardiovascular Disease; Visit Provider Internal Medicine Cardiovascular Disease
DX: I49.1 Atrial premature depolarization (principal); I49.3 Ventricular premature depolarization; R00.2 Palpitations; E78.00 Pure hypercholesterolemia, unspecified
CPT/HCPCS: 36415; 80048; 80061; 80076; 85027

== ENCOUNTER → 2019-08-10 08:49 | Outpatient (CLI) | payer MEDICARE, OTHER, SELFPAY ==
[2019-06-10 14:57] VITALS: BMI 24.9
--- NOTE | 2019-08-10 08:51 | ECHOD_ITS ---
Reason For Study: MITRAL VALVE PROLAPSE Procedure This was a 2D Doppler, Color Flow transthoracic echocardiogram. The exam was of adequate technical quality. Exam performed in department. Left Ventricle Normal LV size. Left ventricular systolic function is normal. The estimated ejection fraction is 55 %. No regional wall motion abnormalities noted. Right Ventricle Normal RV size. Normal systolic function. Atria The left atrium is moderately enlarged. The right atrium is severely enlarged. No doppler evidence for ASD. Mitral Valve There is no mitral annular calcification. Moderate diffuse mitral valve thickening. Moderate mitral valve prolapse. Moderate (2+) eccentric mitral valve insufficiency. Tricuspid Valve Normal tricuspid valve. Moderate (2+) tricuspid valve insufficiency. Right ventricular systolic pressure estimated to be 28 mmHg. Aortic Valve Trisinus/trileaflet aortic valve. Normal aortic valve. Pulmonic Valve The pulmonic valve is not well visualized. Mild (1+) pulmonic valve insufficiency. Great Vessels Normal sized aortic root. Pericardium/Pleural Trivial pericardial effusion. There are no echocardiographic indications of cardiac tamponade. MMode/2D Measurements & Calculations LVIDd: 4.6 cm IVSd: 0.76 cm Ao root diam: 3.2 cm LVIDs: 3.1 cm LVPWd: 0.95 cm RVDd: 3.6 cm FS: 30.9 % LAV(MOD-bp): 58.5 ml LVAd ap4: 22.0 cm2 SV(MOD-sp4): 32.4 ml LAV(MOD-bp) Indexed: 36.5 ml/m2 EDV(MOD-sp4): 63.0 ml LAV(MOD-sp2): 64.1 ml EDV(sp4-el): 65.6 ml LAV(MOD-sp4): 52.1 ml LVAs ap4: 13.7 cm2 ESV(MOD-sp4): 30.6 ml ESV(sp4-el): 30.4 ml EF(MOD-sp4): 51.5 % EF(sp4-el): 53.6 % SV(sp4-el): 35.1 ml LA A4 area: 18.2 cm2 LA dimension(2D): 3.7 cm RA A4 area: 22.2 cm2 Time Measurements MV dec time: 0.28 sec Doppler Measurements & Calculations MV E max gutierrez: 51.5 cm/sec Lat Peak E' Gutierrez: 11.5 cm/sec Med Peak E' Gutierrez: 9.8 cm/sec MV A max gutierrez: 36.6 cm/sec E/E' lat: 4.5 E/E' med: 5.3 MV E/A: 1.4 Ao V2 max: 96.6 cm/sec LV V1 max: 67.6 cm/sec PA V2 max: 86.4 cm/sec Ao max P.7 mmHg LV V1 max P.8 mmHg TR max gutierrez: 250.8 cm/sec TR max P.2 mmHg Interpretation Summary Left ventricular systolic function is normal. The estimated ejection fraction is 55 %. The left atrium is moderately enlarged. The right atrium is severely enlarged. Moderate diffuse mitral valve thickening. Moderate mitral valve prolapse. Moderate (2+) eccentric mitral valve insufficiency. Moderate (2+) tricuspid valve insufficiency. Mild (1+) pulmonic valve insufficiency. Trivial pericardial effusion. There are no echocardiographic indications of cardiac tamponade. Right ventricular systolic pressure estimated to be 28 mmHg. Transmitral diastolic flow velocities suggest diastolic dysfunction (pseudonormal pattern). Ordering Physician: Krishna Goss Referring Physician: ANMOL GUTIÉRREZ Performed By: Bridgett Wick RDCS
== END ==
PROVIDERS: PCP Family Medicine; Referring Provider Internal Medicine Cardiovascular Disease; Visit Provider Internal Medicine Cardiovascular Disease
DX: I36.1 Nonrheumatic tricuspid (valve) insufficiency (principal); I34.1 Nonrheumatic mitral (valve) prolapse
CPT/HCPCS: 93306

== ENCOUNTER → 2020-03-22 09:17 | Outpatient (CLI) | payer MEDICARE, OTHER, SELFPAY ==
[2019-09-29 10:01] VITALS: BMI 25.0
[2020-03-22 11:22] LABS: AST(SGOT) 21 U/L (15-37); Alanine Aminotransfer ALT/SGPT 30 U/L (13-56); Albumin, Serum 3.6 g/dL (3.2-5.0); Alkaline Phosphatase 80 U/L (45-117); Bilirubin, Direct 0.08 mg/dL (0.00-0.30); Cholesterol 197 mg/dL (200); Globulin 3.1 g/dL (2.2-4.2); High Density Lipoprotein 66 mg/dL; Protein, Total 6.7 g/dL (6.4-8.2); Triglycerides 97 mg/dL; Very Low Density Lipoprotein 19 mg/dL (5-40)
== END ==
PROVIDERS: PCP Family Medicine; Referring Provider Internal Medicine Cardiovascular Disease; Visit Provider Internal Medicine Cardiovascular Disease
DX: E78.00 Pure hypercholesterolemia, unspecified (principal)
CPT/HCPCS: 36415; 80061; 80076

== ENCOUNTER → 2020-07-13 10:47 | Outpatient (CLI) | payer MEDICARE, OTHER, SELFPAY ==
[2020-07-07 08:59] VITALS: BMI 25.7
--- NOTE | 2020-07-13 10:48 | ECHOD_ITS ---
Reason For Study: DYSPNEA/SOB, MV DISORDER. Procedure This was a 2D Doppler, Color Flow transthoracic echocardiogram. The exam was of adequate technical quality. Exam performed in department. Left Ventricle Normal LV size. Left ventricular systolic function is normal. The estimated ejection fraction is 55 %. No regional wall motion abnormalities noted. Right Ventricle Normal RV size. Normal systolic function. Atria The left atrium is severely enlarged. The right atrium is severely enlarged. No doppler evidence for ASD. Mitral Valve There is no mitral annular calcification. Moderate diffuse mitral valve thickening. Moderate mitral valve prolapse. Moderate (2+) mitral valve insufficiency. Tricuspid Valve Mild diffuse thickening of the tricuspid valve. Moderate (2+) tricuspid valve insufficiency. Right ventricular systolic pressure estimated to be 26 mmHg. Aortic Valve Trisinus/trileaflet aortic valve. Mild focal aortic valve calcification. Pulmonic Valve The pulmonic valve is not well visualized. Mild (1+) pulmonic valve insufficiency. Great Vessels Normal sized aortic root. Pericardium/Pleural No pericardial effusion. MMode/2D Measurements & Calculations LVIDd: 4.4 cm IVSd: 0.90 cm Ao root diam: 3.2 cm LVIDs: 3.2 cm LVPWd: 0.91 cm RVDd: 3.3 cm FS: 27.7 % LAV(MOD-bp): 73.1 ml LA A4 area: 21.4 cm2 LA dimension(2D): 4.2 cm LAV(MOD-bp) Indexed: 45.6 ml/m2 LAV(MOD-sp2): 80.7 ml LAV(MOD-sp4): 60.6 ml RA A4 area: 27.5 cm2 Time Measurements MV dec time: 0.19 sec Doppler Measurements & Calculations MV E max gutierrez: 72.9 cm/sec Lat Peak E' Gutierrez: 13.6 cm/sec Med Peak E' Gutierrez: 11.4 cm/sec MV A max gutierrez: 28.5 cm/sec E/E' lat: 5.4 E/E' med: 6.4 MV E/A: 2.6 Ao V2 max: 77.7 cm/sec LV V1 max: 54.9 cm/sec PA V2 max: 60.0 cm/sec Ao max P.4 mmHg LV V1 max P.2 mmHg PI end-d gutierrez: 91.7 cm/sec TR max gutierrez: 211.2 cm/sec TR max P.9 mmHg ECHO/Echo Complete Interpretation Summary Left ventricular systolic function is normal. The estimated ejection fraction is 55 %. The left atrium is severely enlarged. The right atrium is severely enlarged. Moderate diffuse mitral valve thickening. Moderate mitral valve prolapse. Moderate (2+) mitral valve insufficiency. Mild diffuse thickening of the tricuspid valve. Moderate (2+) tricuspid valve insufficiency. Mild focal aortic valve calcification. Mild (1+) pulmonic valve insufficiency. Right ventricular systolic pressure estimated to be 26 mmHg. Transmitral diastolic flow velocities suggest diastolic dysfunction (pseudonorm al pattern). Ordering Physician: Vicente Martinez Referring Physician: Vicente Jalloh Performed By: Nava Sanderson, AUDREY, RVT
== END ==
PROVIDERS: PCP Family Medicine; Referring Provider Nurse Practitioner Family; Visit Provider Nurse Practitioner Family
DX: I49.1 Atrial premature depolarization (principal); I49.3 Ventricular premature depolarization; I34.0 Nonrheumatic mitral (valve) insufficiency; I36.1 Nonrheumatic tricuspid (valve) insufficiency
CPT/HCPCS: 93225; 93226; 93306

== ENCOUNTER → 2020-08-24 09:51 | Outpatient (CLI) | payer MEDICARE, OTHER, SELFPAY ==
[2020-08-14 06:50] VITALS: BMI 23.6
--- NOTE | 2020-08-24 14:42 | PFTCOMP ---
COMPLETE PULMONARY FUNCTION TEST INTERPRETATION Brief HPI: Patient is a 74 year old female, currently under the care of myself, who presents to [facility] for complete pulmonary function tests secondary to diagnosis of dyspnea. Respiratory therapist reports good effort and reproducible results. Interpretation: Forced expiration spirometry shows no large airways obstructive ventilatory defect with an FEV1 of 101% predicted. There is no significant bronchodilator response by strict ATS criteria. Spirograms are of good quality and plateau normally. The respiratory flow volume loop shows a normal pattern. Lung volumes by body plethysmography show a normal total lung capacity at 4.93 L, 112% predicted. All other lung volumes are within normal limits. Diffusion capacity by carbon monoxide is normal at 84% predicted. The airway resistance is normal. Compared to previous pulmonary function tests from 05/16/16, there has been no significant change. Impression: These pulmonary function tests are grossly within normal limits and showed no significant change compared to study completed 4 years prior.
== END ==
PROVIDERS: PCP Family Medicine; Referring Provider Internal Medicine Critical Care Medicine; Visit Provider Internal Medicine Critical Care Medicine
DX: R06.02 Shortness of breath (principal); I48.91 Unspecified atrial fibrillation
CPT/HCPCS: 94060; 94726; 94729

== ENCOUNTER → 2020-10-24 15:34 | Outpatient (CLI) | payer MEDICARE, OTHER, SELFPAY ==
[2020-10-24 17:49] LABS: Absolute Lymphocyte Count 1.46 X10^3/uL (0.83-4.51); Absolute Neutrophil Count 3.1 X10^3/uL (2.0-7.7); Basophil# 0.04 X10^3/uL; Basophil% 0.8 % (0-1); Eosinophil# 0.07 X10^3/uL; Eosinophils% 1.3 % (0-5); Hematocrit 39.7 % (37-47); Hemoglobin 13.5 g/dL (12.0-15.0); Lymphocyte # 1.46 X10^3/ul (0.83-4.51); Lymphocyte % 27.8 % (19-41); Mean Corpuscular Hgb 32.8 pg (27.0-32.0); Mean Corpuscular Volume 96.6 fL (81-99); Mean Platelet Vol. 11.6 fl (6.2-12.0); Monocyte# 0.53 X10^3/uL; Monocyte% 10.1 % (0-10); NRBC Flagged by Analyzer 0 % (0-5); Neutrophil # 3.14 X10^3/uL (2.7-7.7); Neutrophil % 59.8 % (47-70); Platelet Count 136 K/mm3 (150-450); RBC Distribution Width CV 13.2 % (11.6-14.6); RBC Distribution Width SD 46.8 fl (35.1-43.9); Red Blood Count 4.11 M/mm3 (4.2-5.4); White Blood Count 5.3 K/mm3 (4.4-11.0)
[2020-10-24 18:20] LABS: AST(SGOT) 33 U/L (15-37); Alanine Aminotransfer ALT/SGPT 37 U/L (13-56); Albumin, Serum 3.3 g/dL (3.2-5.0); Alkaline Phosphatase 74 U/L (45-117); Anion Gap 8 (5-15); BUN 17 mg/dL (7-18); BUN/Creat Ratio 25.3 RATIO (10-20); Calcium,Total 9.1 mg/dL (8.5-10.1); Chloride 107 mmol/L (98-107); Cholesterol 182 mg/dL (200); Creatinine, Serum 0.67 mg/dL (0.55-1.02); EST Glomerular Filtration Rate 91 mL/min (>60); Est Glom Filt Rate - Afr Amer 111 mL/min (>60); Globulin 3.4 g/dL (2.2-4.2); Glucose 91 mg/dL (74-106); High Density Lipoprotein 74 mg/dL; Magnesium 2.2 mg/dL (1.6-2.6); Protein, Total 6.7 g/dL (6.4-8.2); Sodium Level 137 mmol/L (136-145); Thyroid Stim Hormone (TSH) 2.51 uIU/mL (0.358-3.74); Triglycerides 151 mg/dL; Very Low Density Lipoprotein 30 mg/dL (5-40)
== END ==
PROVIDERS: PCP Family Medicine; Visit Provider Family Medicine
DX: I48.91 Unspecified atrial fibrillation (principal); E55.9 Vitamin D deficiency, unspecified
CPT/HCPCS: 36415; 80053; 80061; 82306; 83735; 84443; 85025

== ENCOUNTER 2021-04-17 10:55 | Outpatient (CLI) | payer MEDICARE, OTHER, SELFPAY ==
[2021-04-17 12:34] LABS: Erythrocyte Sedimentation Rate 7 mm/hr (0-30)
[2021-04-17 12:38] LABS: Absolute Lymphocyte Count 1.33 X10^3/uL (0.83-4.51); Absolute Neutrophil Count 3.8 X10^3/uL (2.0-7.7); Basophil# 0.03 X10^3/uL; Basophil% 0.5 % (0-1); Eosinophil# 0.05 X10^3/uL; Eosinophils% 0.9 % (0-5); Hematocrit 40.1 % (37-47); Hemoglobin 13.5 g/dL (12.0-15.0); Lymphocyte # 1.33 X10^3/ul (0.83-4.51); Lymphocyte % 23.5 % (19-41); Mean Corp Hgb Conc 33.7 g/dL (32-36); Mean Corpuscular Hgb 32.7 pg (27.0-32.0); Mean Corpuscular Volume 97.1 fL (81-99); Mean Platelet Vol. 10.9 fl (6.2-12.0); Monocyte# 0.49 X10^3/uL; Monocyte% 8.6 % (0-10); NRBC Flagged by Analyzer 0 % (0-5); Neutrophil # 3.75 X10^3/uL (2.7-7.7); Neutrophil % 66.1 % (47-70); Platelet Count 154 K/mm3 (150-450); RBC Distribution Width CV 12.6 % (11.6-14.6); RBC Distribution Width SD 44.9 fl (35.1-43.9); Red Blood Count 4.13 M/mm3 (4.2-5.4); White Blood Count 5.7 K/mm3 (4.4-11.0)
[2021-04-17 12:58] LABS: Vitamin D,25 Hydroxy 32.3 ng/mL
[2021-04-17 13:01] LABS: ALB/GLOB Ratio 1.1 RATIO (0.9-2.4); AST(SGOT) 19 U/L (15-37); Alanine Aminotransfer ALT/SGPT 23 U/L (13-56); Albumin, Serum 3.9 g/dL (3.2-5.0); Alkaline Phosphatase 88 U/L (45-117); Anion Gap 5 (5-15); BUN 17 mg/dL (7-18); BUN/Creat Ratio 26.5 RATIO (10-20); CRP < 2.90 mg/L (0.0-3.0); Calcium,Total 9.7 mg/dL (8.5-10.1); Chloride 104 mmol/L (98-107); Creatinine, Serum 0.64 mg/dL (0.55-1.02); EST Glomerular Filtration Rate 96 mL/min (>60); Est Glom Filt Rate - Afr Amer 116 mL/min (>60); Globulin 3.4 g/dL (2.2-4.2); Glucose 91 mg/dL (74-106); Magnesium 2.3 mg/dL (1.6-2.6); Potassium 4.1 mmol/L (3.5-5.1); Protein, Total 7.3 g/dL (6.4-8.2); Sodium Level 137 mmol/L (136-145)
== END 2021-04-17 23:59 | disposition home or self-care (01) ==
LOC: MTLAB 10:58
PROVIDERS: PCP Family Medicine; Referring Provider Family Medicine; Visit Provider Family Medicine
DX: I48.92 Unspecified atrial flutter (principal); E55.9 Vitamin D deficiency, unspecified
CPT/HCPCS: 36415; 80053; 82306; 83735; 85025; 85652; 86140

== ENCOUNTER 2021-04-26 08:07 | Outpatient (CLI) | payer MEDICARE, OTHER, SELFPAY ==
--- NOTE | 2021-04-26 08:08 | MRI_ITS ---
STUDY: EXAMINATION - MRV BRAIN WITHOUT CONTRAST REASON FOR EXAM: Female, 75 years old. Worsened headaches since February 2021 TECHNIQUE: 3D [id number] (TOF) imaging was performed in a 1.5 aris MRI scanner. COMPARISON: None. FINDINGS: Normal flow within the superior sagittal sinus. Normal flow within the superficial cortical veins. Normal flow within the paired internal cerebral veins, vein of Panda and straight sinus. Normal flow within the bilateral transverse and sigmoid sinuses. Normal flow within the bilateral jugular bulbs. MRI/MRV Head Without Contrast IMPRESSION: Normal unenhanced MRV of the brain. Electronically Signed: Vladislav Gilmore MD at 10:26 EST ,
== END 2021-04-26 23:59 | disposition home or self-care (01) ==
LOC: MRI 08:08
PROVIDERS: PCP Family Medicine; Referring Provider Psychiatry & Neurology Neurology; Visit Provider Psychiatry & Neurology Neurology
DX: R51.9 Headache, unspecified (principal)
CPT/HCPCS: 70544

== ENCOUNTER 2021-05-08 17:39 | Outpatient (CLI) | payer MEDICARE, OTHER, SELFPAY | END 2021-05-08 23:59 | disposition home or self-care (01) | PROVIDERS: PCP Family Medicine; Visit Provider Nurse Practitioner Family | DX: N39.0 Urinary tract infection, site not specified (principal) | CPT/HCPCS: 87086; 87088; 87186 ==

== ENCOUNTER → 2021-08-08 | Outpatient (CLI) | payer MEDICARE, OTHER, SELFPAY | END | disposition home or self-care (01) | PROVIDERS: PCP Family Medicine; Visit Provider Family Medicine | DX: Z20.822 Contact with and (suspected) exposure to COVID-19 (principal) | CPT/HCPCS: 87635; U0003; U0005 ==

== ENCOUNTER → 2021-08-16 | Outpatient (CLI) | payer MEDICARE, OTHER, SELFPAY ==
[2021-08-16 12:30] LABS: Absolute Lymphocyte Count 1.71 X10^3/uL (0.83-4.51); Absolute Neutrophil Count 4.1 X10^3/uL (2.0-7.7); Basophil# 0.04 X10^3/uL; Basophil% 0.6 % (0-1); Eosinophil# 0.04 X10^3/uL; Eosinophils% 0.6 % (0-5); Hematocrit 38.2 % (37-47); Lymphocyte # 1.71 X10^3/ul (0.83-4.51); Lymphocyte % 25.6 % (19-41); Mean Corpuscular Hgb 33.2 pg (27.0-32.0); Mean Corpuscular Volume 97.4 fL (81-99); Mean Platelet Vol. 10.5 fl (6.2-12.0); Monocyte# 0.74 X10^3/uL; Monocyte% 11.1 % (0-10); NRBC Flagged by Analyzer 0 % (0-5); Neutrophil # 4.12 X10^3/uL (2.7-7.7); Neutrophil % 61.7 % (47-70); Platelet Count 179 K/mm3 (150-450); RBC Distribution Width CV 11.9 % (11.6-14.6); RBC Distribution Width SD 42.9 fl (35.1-43.9); Red Blood Count 3.92 M/mm3 (4.2-5.4); White Blood Count 6.7 K/mm3 (4.4-11.0)
[2021-08-16 13:09] LABS: ALB/GLOB Ratio 1.1 RATIO (0.9-2.4); AST(SGOT) 16 U/L (15-37); Alanine Aminotransfer ALT/SGPT 17 U/L (13-56); Albumin, Serum 3.7 g/dL (3.2-5.0); Alkaline Phosphatase 76 U/L (45-117); Anion Gap 8 (5-15); BUN 13 mg/dL (7-18); BUN/Creat Ratio 19.2 RATIO (10-20); Calcium,Total 9.4 mg/dL (8.5-10.1); Chloride 99 mmol/L (98-107); Creatinine, Serum 0.68 mg/dL (0.55-1.02); EST Glomerular Filtration Rate 90 mL/min (>60); Est Glom Filt Rate - Afr Amer 109 mL/min (>60); Globulin 3.3 g/dL (2.2-4.2); Glucose 97 mg/dL (74-106); Potassium 4.1 mmol/L (3.5-5.1); Sodium Level 133 mmol/L (136-145)
[2021-08-16 19:59] LABS: Osmolality, Serum 280 mOsm/KG (280-301)
== END | disposition home or self-care (01) ==
LOC: MFPLAB 10:46
PROVIDERS: PCP Family Medicine; Visit Provider Nurse Practitioner Family
DX: R50.9 Fever, unspecified (principal); R53.83 Other fatigue; E87.1 Hypo-osmolality and hyponatremia
CPT/HCPCS: 36415; 80053; 83930; 85025

== ENCOUNTER → 2021-09-03 | Outpatient (CLI) | payer MEDICARE, OTHER, SELFPAY ==
[2021-09-03 12:30] LABS: Anion Gap 6 (5-15); BUN 12 mg/dL (7-18); BUN/Creat Ratio 16.1 RATIO (10-20); Calcium,Total 9.7 mg/dL (8.5-10.1); Chloride 103 mmol/L (98-107); Creatinine, Serum 0.74 mg/dL (0.55-1.02); EST Glomerular Filtration Rate 81 mL/min (>60); Est Glom Filt Rate - Afr Amer 98 mL/min (>60); Glucose 89 mg/dL (74-106); Potassium 4.1 mmol/L (3.5-5.1); Sodium Level 139 mmol/L (136-145)
== END | disposition home or self-care (01) ==
LOC: MFPLAB 10:52
PROVIDERS: PCP Family Medicine; Visit Provider Nurse Practitioner Family
DX: E87.1 Hypo-osmolality and hyponatremia (principal)
CPT/HCPCS: 36415; 80048

== ENCOUNTER 2021-11-15 09:48 | Inpatient (IN) | payer MEDICARE, OTHER, SELFPAY ==
[2021-11-15] VITALS (14 sets, daily range): BP systolic 78–114; BP diastolic 62–82; PULSE 71–88; RESP 12–20; TEMP 36.2–36.6; O2SAT 96–100; BMI 23.8; BMI 24.9
--- NOTE | 2021-11-15 10:23 | ED.VIS.CHEST ---
HPI History of Present Illness Chief Complaint: Chest Pain Informant: patient Onset/Context/Timing Onset: Yesterday Activity at onset: gradual, light activity and exertion Timing: Intermittent Quality: Positive for Pressure Location: Right Chest and Left Chest Worsened By: Exertion Relieved By: Rest Associated Symptoms: Positive for Dyspnea, Lightheadedness and Palpitations; Negative for Nausea, Vomiting, Diaphoresis, Cough, Fever or Acid Reflux Narrative Narrative: Patient presents with chest pain and palpitations that began yesterday. Patient states that she can feel herself go in and out of atrial fibrillation yesterday. Patient states it seems to be worse whenever she stood up to do any activities. Patient states that when she walked her heart rate went into the 160s. Patient states it goes away with rest. Patient states she feels lightheaded when her heart starts racing. Patient also admits to some shortness of breath with this. Patient admits to some pressure over the upper chest when this occurs. Patient states her blood pressure at home today was low. CVD Risk Factors: Positive for Hypercholesterolemia; Negative for Hypertension, Diabetes, Family History 1' </=55 or Smoking PE Risk Factors: Negative for Recent Travel/Surgery, Recent Immobilization, Prior DVT or PE, Cancer or OCP + Smoking + >/=35 PFSH PFSH Medical History Abnormal stress echocardiogram Atrial fibrillation Atrial premature depolarization Chest pain Heart murmur History of back problems Hx of cataract Hx of headache Migraine without aura and without status migrainosus, not intractable Non-rheumatic tricuspid valve insufficiency Nonrheumatic mitral (valve) insufficiency Nonrheumatic mitral (valve) prolapse Palpitations Pure hypercholesterolemia SOB (shortness of breath) Status post left heart catheterization (LHC) (~08/04/18) UTI (urinary tract infection) Ventricular premature depolarization Vision problems Home Medications omega-3 fatty acids 1,000 mg capsule (Fish Oil Concentrate) 1,000 mg PO QDAY 07/01/17 [History Last Taken Unknown] glucosamine sulfate 500 mg tablet (Glucosamine) 1,000 mg PO QHS 07/08/18 [History Last Taken Unknown] lactobacillus combination no.8 3 billion cell capsule (Adult Probiotic) 3,000 mmu cells PO DAILY 07/08/18 [History Last Taken Unknown] ascorbic acid (vitamin C) 1,000 mg tablet 1 g PO DAILY 09/29/19 [History Last Taken Unknown] zinc acetate 50 mg (zinc) capsule 50 mg PO DAILY 04/13/20 [History Last Taken Unknown] CalciAIM (Ca, Mg, vit C & D) PO 04/17/21 [History Last Taken Unknown] barley juice powder PO 04/17/21 [History Last Taken Unknown] pea protein powder PO 04/17/21 [History Last Taken Unknown] amoxicillin 500 mg tablet 2,000 mg PO .COMPLEX #4 tabs 09/20/21 [Rx Last Taken Unknown] apixaban 5 mg tablet (Eliquis) 5 mg PO BID #180 tabs 09/20/21 [Rx Last Taken Unknown] cholecalciferol (vitamin D3) 50 mcg (2,000 unit) tablet 100 mcg PO DAILY 09/20/21 [History Last Taken Unknown] coenzyme Q10 60 mg capsule 120 mg PO DAILY 09/20/21 [History Last Taken Unknown] flecainide 100 mg tablet 100 mg PO Q12H 10/17/21 [History Last Taken Unknown] Allergy/AdvReac Type Severity Reaction Status Date / Time No Known Allergies Allergy Verified 11/15/21 09:50 Family History Father CVA (cerebral vascular accident) Alcoholism Blood clot in vein Respiratory disease Mother Depression Thyroid disorder Grandmother Diabetes Brother Heart disease Surgical History H/O dilation and curettage History of cardioversion (~01/18/21) History of radiofrequency ablation procedure for cardiac arrhythmia (~01/12/21) History of tonsillectomy and adenoidectomy Social History Smoking Status: Never smoker alcohol intake: never substance use type: does not use what type of physical activity do you participate in: none and walking frequency: daily ROS ROS ED Constitutional Constitutional ED: Denies chills or fever(s) Eyes Eyes: Denies blurry vision or change in vision ENT ENT ED: Reports sore throat; Denies rhinorrhea Cardiovascular Cardiovascular: Reports chest pain and palpitations Respiratory/Chest Respiratory/Chest: Denies cough or dyspnea Gastrointestinal Gastrointestinal: Denies abdominal pain, nausea or vomiting Genitourinary Genitourinary ED: Denies dysuria or hematuria Musculoskeletal Musculoskeletal: Denies back pain or neck pain Integumentary Denies abscess or rash Neurologic Neurologic: Reports headache(s); Denies weakness Allergic/Immunologic Allergic/Immunologic ED: Denies mouth swelling or urticaria EXAM Physical Exam Const Vital Signs: 11/15/21 09:49 11/15/21 10:02 11/15/21 10:14 Temperature 97.8 F Temperature Source Temporal Pulse Rate 85 79 Pulse Rate [Lying] Pulse Rate [Sitting (for 1 minute prior to obtaining)] Pulse Rate [Standing (for 1 minute prior to obtaining)] Respiratory Rate 16 18 Respiratory Effort Normal Non-Labored Blood Pressure 106/81 H 114/82 H Blood Pressure [Lying] Blood Pressure [Sitting (for 1 minute prior to obtaining)] Blood Pressure [Standing (for 1 minute prior to obtaining)] Blood Pressure Mean 89 92 Blood Pressure Mean [Lying] Blood Pressure Mean [Sitting (for 1 minute prior to obtaining)] Blood Pressure Mean [Standing (for 1 minute prior to obtaining)] Pulse Ox 99 96 Oxygen Delivery Method Room Air 11/15/21 10:43 11/15/21 10:46 11/15/21 11:51 Temperature Temperature Source Pulse Rate 78 Pulse Rate [Lying] 75 Pulse Rate [Sitting (for 1 minute prior to obtaining)] 77 Pulse Rate [Standing (for 1 minute prior to obtaining)] 79 Respiratory Rate 15 Respiratory Effort Blood Pressure 89/69 L Blood Pressure [Lying] 98/69 Blood Pressure [Sitting (for 1 minute prior to obtaining)] 98/68 Blood Pressure [Standing (for 1 minute prior to obtaining)] 78/66 L Blood Pressure Mean 75 Blood Pressure Mean [Lying] 78 Blood Pressure Mean [Sitting (for 1 minute prior to obtaining)] 78 Blood Pressure Mean [Standing (for 1 minute prior to obtaining)] 70 Pulse Ox 99 98 Oxygen Delivery Method Room Air Room Air 11/15/21 12:46 Temperature Temperature Source Pulse Rate 76 Pulse Rate [Lying] Pulse Rate [Sitting (for 1 minute prior to obtaining)] Pulse Rate [Standing (for 1 minute prior to obtaining)] Respiratory Rate 16 Respiratory Effort Blood Pressure 98/71 Blood Pressure [Lying] Blood Pressure [Sitting (for 1 minute prior to obtaining)] Blood Pressure [Standing (for 1 minute prior to obtaining)] Blood Pressure Mean 80 Blood Pressure Mean [Lying] Blood Pressure Mean [Sitting (for 1 minute prior to obtaining)] Blood Pressure Mean [Standing (for 1 minute prior to obtaining)] Pulse Ox 98 Oxygen Delivery Method Room Air Positive well nourished and well developed General Appearance ED: well developed and NAD HEENT Reports moist mucous membranes normocephalic and atraumatic Eyes PERRL and EOMs intact bilaterally Neck supple and no JVD Chest Wall palpation of chest normal Resp normal respiratory effort and clear to auscultation bilaterally Effort and Inspection: Negative for respiratory distress Cardio regular rate, regular rhythm and no murmurs GI normal to inspection, nondistended, normoactive bowel sounds, soft to palpation, non-tender and non-distended Extremity normal to inspection General Extremety ED: Negative for edema or tenderness General Extremity: Negative for edema Neuro oriented x3, CN's II-XII intact bilaterally and no sensory deficits noted Sensorium / Orientation: awake and alert Motor Exam: strength 5/5 throughout Psych mental status grossly normal Heart Score History: Moderately Suspicious ECG: Nonspecific Repolarization Age: >/= 65 years Risk Factors: 1 or 2 Risk Factors Troponin: </= Normal Limit Score: 5 MDM MDM MDM Narrative Medical decision making narrative: EKG was obtained. On my interpretation, it showed a normal sinus rhythm with a rate of 81. NV interval was within normal limits. QRS interval was slightly prolonged at 130 ms. QTC was slightly prolonged at 494 ms. There is left axis deviation at -68. There are no acute ST or T wave changes. This was unchanged compared to previous EKG dated 10/19/2021. CBC was within normal limits. PT with INR and PTT were essentially within normal limits. PTT was slightly elevated at 38.5. Basic metabolic profile shows a mild hyponatremia of 133 but was otherwise within normal limits. Initial high-sensitivity troponin was normal at 5. Portable 1 view chest x-ray was obtained. On my interpretation, lung dobbins are clear. There is normal cardiac silhouette. Bony thorax is normal. There is no acute process noted. Radiologist also interpreted the x-ray and agrees. 2-hour repeat troponin was also normal at 6. Orthostatic vital signs were obtained and were within normal limits. Patient maintained in normal sinus rhythm during her entire emergency department stay. Patient has a HEART score of 5. Because of this, I recommended admission to the hospital. Case was discussed with Dr. Goss, her egg grader. He is agreeable with this. Case was discussed with the hospitalist. He will admit the patient for observation. Patient understood and was agreeable with the plan. All questions were answered. Lab Data Attestation: I reviewed the patient's lab results. Labs: Laboratory Results - last 24 hr 11/15/21 11/15/21 11/15/21 10:09 10:09 10:09 WBC 7.1 RBC 4.62 Hgb 15.0 Hct 44.7 MCV 96.8 MCH 32.5 H MCHC 33.6 RDW Std Deviation 44.7 H RDW Coeff of Karina 12.5 Plt Count 161 MPV 11.0 Immature Gran % (Auto) 0.400 Neut % (Auto) 72.6 H Lymph % (Auto) 18.6 L [place] % (Auto) 7.6 Eos % (Auto) 0.4 Baso % (Auto) 0.4 Absolute Neuts (auto) 5.2 Absolute Lymphs (auto) 1.32 Nucleated RBC % 0 PT 14.7 INR 1.2 APTT 38.5 H Sodium 133 L Potassium 4.4 Chloride 100 Carbon Dioxide 26.0 Anion Gap 7 BUN 16 Creatinine 0.87 Estim Creat Clear Calc 44.87 Est GFR (MDRD) Af Amer 82 Est GFR (MDRD) Non-Af 67 BUN/Creatinine Ratio 18.4 Glucose 98 Calcium 9.4 Magnesium 2.0 Troponin I High Sens 5 11/15/21 12:23 WBC RBC Hgb Hct MCV MCH MCHC RDW Std Deviation RDW Coeff of Karina Plt Count MPV Immature Gran % (Auto) Neut % (Auto) Lymph % (Auto) [place] % (Auto) Eos % (Auto) Baso % (Auto) Absolute Neuts (auto) Absolute Lymphs (auto) Nucleated RBC % PT INR APTT Sodium Potassium Chloride Carbon Dioxide Anion Gap BUN Creatinine Estim Creat Clear Calc Est GFR (MDRD) Af Amer Est GFR (MDRD) Non-Af BUN/Creatinine Ratio Glucose Calcium Magnesium Troponin I High Sens 6 Radiography Chest X-Ray - ED: 1 View, Read by ED Physician, Read by Radiologist and No Acute Disease Diagnostic Testing: Clinical Impression(s) from Imaging Studies Chest X-Ray 11/15/21 10:50 IMPRESSION: Hyperinflation. The lungs are clear. Electronically Signed: Jac Villarreal MD at 11:14 EDT , EKG Initial EKG: Attestation: I personally reviewed and interpreted this EKG as follows: Interpretation: Sinus Rhythm (81) and Non-Specific ST Changes Prior EKG tracings: available for review Prior: Unchanged (10/19/2021) Discharge Plan Triage Chief Complaint: Chest Pain ED Provider: Misha Moser Dx/Rx/DC Orders Clinical Impression: Chest pain, Atrial fibrillation, Palpitations Prescriptions: No Action omega-3 fatty acids [Fish Oil Concentrate] 1,000 mg capsule 1,000 mg PO QDAY Adult Probiotic 3 billion cell capsule 3,000 mmu cells PO DAILY glucosamine sulfate [Glucosamine] 500 mg tablet 1,000 mg PO QHS ascorbic acid (vitamin C) 1,000 mg tablet 1 g PO DAILY zinc acetate 50 mg (zinc) capsule 50 mg (zinc) capsule 50 mg PO DAILY Rx Instructions: swallow whole; do not chew/break/dissolve/open barley juice powder PO pea protein powder PO CalciAIM (Ca, Mg, vit C & D) PO cholecalciferol (vitamin D3) 50 mcg (2,000 unit) tablet 100 mcg PO DAILY coenzyme Q10 60 mg capsule 120 mg PO DAILY amoxicillin 500 mg tablet 2,000 mg PO .COMPLEX Qty: 4 3RF Rx Instructions: 2,000 mg PO 1 hour prior to dental procedure Eliquis 5 mg tablet 5 mg PO BID Qty: 180 4RF flecainide 100 mg tablet 100 mg PO Q12H Primary Care Provider: Vicente Huerta Referrals: Vicente Huerta MD [Primary Care Provider] - Disposition Disposition: Acute Care Hospital [facility]
--- NOTE | 2021-11-15 10:31 | EKG12_ITS ---
Test Reason : Blood Pressure : / mmHG Vent. Rate : 081 BPM Atrial Rate : 081 BPM P-R Int : 100 ms QRS Dur : 130 ms QT Int : 426 ms P-R-T Axes : 048 -68 105 degrees QTc Int : 494 ms Sinus rhythm with short MT Left axis deviation Non-specific intra-ventricular conduction block Minimal voltage criteria for LVH, may be normal variant ( [place] product ) Confirmed by SHILO CANSECO, MASON ([id number]), market editor MARGARETH CRENSHAW ([id number]) on 11/16/2021 10:38:40 AM Referred By: TAYA Confirmed By:MASON LAO MD
[2021-11-15 10:39] LABS: Absolute Lymphocyte Count 1.32 X10^3/uL (0.83-4.51); Absolute Neutrophil Count 5.2 X10^3/uL (2.0-7.7); Basophil# 0.03 X10^3/uL; Basophil% 0.4 % (0-1); Eosinophil# 0.03 X10^3/uL; Eosinophils% 0.4 % (0-5); Hematocrit 44.7 % (37-47); Lymphocyte # 1.32 X10^3/ul (0.83-4.51); Lymphocyte % 18.6 % (19-41); Mean Corp Hgb Conc 33.6 g/dL (32-36); Mean Corpuscular Hgb 32.5 pg (27.0-32.0); Mean Corpuscular Volume 96.8 fL (81-99); Monocyte# 0.54 X10^3/uL; Monocyte% 7.6 % (0-10); NRBC Flagged by Analyzer 0 % (0-5); Neutrophil # 5.15 X10^3/uL (2.7-7.7); Neutrophil % 72.6 % (47-70); Platelet Count 161 K/mm3 (150-450); RBC Distribution Width CV 12.5 % (11.6-14.6); RBC Distribution Width SD 44.7 fl (35.1-43.9); Red Blood Count 4.62 M/mm3 (4.2-5.4); White Blood Count 7.1 K/mm3 (4.4-11.0)
[2021-11-15] MEDS: Aspirin 81 MG TAB.CHEW 324 MG PO (10:42)
[2021-11-15 10:45] LABS: International Normalized Ratio 1.2; Prothrombin Time (Protime)PT. 14.7 SECONDS (11.7-14.9)
[2021-11-15 10:46] LABS: Partial Thromboplast Time 38.5 Seconds (24.1-36.2)
--- NOTE | 2021-11-15 10:50 | RAD_ITS ---
STUDY: X-RAY CHEST REASON FOR EXAM: Female, 75 years old. Chest pain. Tachycardia. Hypotension. TECHNIQUE: Single AP portable view of the chest. COMPARISON: Comparison is made with prior study dated 03/21/2016. FINDINGS: EKG electrodes are seen. Hyperinflation. The lungs are clear. There is no demonstrated pleural abnormality. Normal size heart. Normal mediastinum and all. Normal visualized pulmonary arteries. Normal visualized aortic arch and descending thoracic aorta. Normal visualized thoracic spine. Normal visualized ribs, clavicles, and shoulders. There is no demonstrated abnormality of the visualized soft tissue structures of the upper abdomen. RAD/Chest 1 View (Portable) IMPRESSION: Hyperinflation. The lungs are clear. Electronically Signed: Jac Villarreal MD at 11:14 EDT ,
[2021-11-15 10:53] LABS: Anion Gap 7 (5-15); BUN 16 mg/dL (7-18); BUN/Creat Ratio 18.4 RATIO (10-20); Calcium,Total 9.4 mg/dL (8.5-10.1); Chloride 100 mmol/L (98-107); Creatinine, Serum 0.87 mg/dL (0.55-1.02); EST Glomerular Filtration Rate 67 mL/min (>60); Est Glom Filt Rate - Afr Amer 82 mL/min (>60); Estimated Creatinine Clearance 44.87 ml/min; Glucose 98 mg/dL (74-106); Potassium 4.4 mmol/L (3.5-5.1); Sodium Level 133 mmol/L (136-145); Troponin-I HS (w/2H Reflex) 5 pg/mL (3.0-54.0)
[2021-11-15 12:37] LABS: Reflex Troponin-HS? (from REC) Y
[2021-11-15 13:04] LABS: Troponin-I HS 6 pg/mL (3.0-54.0)
--- NOTE | 2021-11-15 15:55 | HP.PCM.HOS_ITS ---
HPI - General General Date of Admission: 11/15/21 Date of Service: 11/15/21 Chief Complaint: Chest pain HPI Narrative GRAHAM SHAH, is a 75 F who presents to the emergency room at [facility] after being directed there from her cdl service technician office, she has had episodic chest pain since yesterday, this appears to last a few minutes, she describes it as pressure-like in nature and across her upper chest, she stated she had some radiation down her left arm. She states the discomfort appears to be brought on by exertion and goes away at rest. Patient also states that she had a drop in her blood pressure yesterday while standing-she states she has a blood pressure monitor at home. Patient stated today she felt as if her heart was racing at times when she stood up. Patient underwent a cardiac catheterization approximately 3 years ago which showed no evidence of coronary artery disease, her cardiac history is remarkable for an ablation in the past due to atrial fibrillation. She sees an house director in [place]. Work-up in the emergency room included an EKG which showed normal sinus rhythm without evidence of ischemic changes, chest x-ray was unremarkable, cardiac enzymes were normal. Patient was placed in observation status for chest pain, cardiac enzymes will be cycled, if they remain negative she will undergo a treadmill nuclear stress test tomorrow. I talked with her cdl service technician here (Dr. Goss) concerning her care. [facility] Medical History Abnormal stress echocardiogram Atrial fibrillation Atrial premature depolarization Chest pain Heart murmur History of back problems Hx of cataract Hx of headache Migraine without aura and without status migrainosus, not intractable Non-rheumatic tricuspid valve insufficiency Nonrheumatic mitral (valve) insufficiency Nonrheumatic mitral (valve) prolapse Palpitations Pure hypercholesterolemia SOB (shortness of breath) Status post left heart catheterization (LHC) (~08/04/18) UTI (urinary tract infection) Ventricular premature depolarization Vision problems Home Medications omega-3 fatty acids 1,000 mg capsule (Fish Oil Concentrate) 2,000 mg PO DAILY SUPPLEMENT 07/01/17 [History Last Taken 11/14/21] glucosamine sulfate 500 mg tablet (Glucosamine) 1,000 mg PO QHS 07/08/18 [Histo ry Last Taken 11/14/21] lactobacillus combination no.8 3 billion cell capsule (Adult Probiotic) 3,000 mmu cells PO DAILY HEALTH MAINTENANCE 07/08/18 [History Last Taken 11/14/21] ascorbic acid (vitamin C) 1,000 mg tablet 1 g PO DAILY supplement 09/29/19 [History Last Taken 11/14/21] CalciAIM (Ca, Mg, vit C & D) 1 tspn PO DAILY SUPPLEMENT 04/17/21 [History Last Taken 11/14/21] barley juice powder 1 tspn PO DAILY supplement 04/17/21 [History Last Taken 11/14/21] pea protein powder 1 tspn PO DAILY SUPPLEMENT 04/17/21 [History Last Taken 11/14/21] apixaban 5 mg tablet (Eliquis) 5 mg PO BID #180 tabs 09/20/21 [Rx Last Taken 11/15/21] cholecalciferol (vitamin D3) 50 mcg (2,000 unit) tablet 100 mcg PO DAILY SUPPLEMENT 09/20/21 [History Last Taken 11/15/21] coenzyme Q10 60 mg capsule 120 mg PO DAILY SUPPLEMENT 09/20/21 [History Last Taken 11/14/21] flecainide 100 mg tablet 100 mg PO Q12H 10/17/21 [History Last Taken 11/15/21] acetaminophen 500 mg tablet 500 - 1,000 mg PO DAILY PRN Pain 11/15/21 [History Last Taken 3 Days Ago ~11/12/21] zinc acetate 50 mg (zinc) capsule 50 mg PO DAILY SUPPLEMENT 11/15/21 [History Last Taken 11/14/21] Allergy/AdvReac Type Severity Reaction Status Date / Time No Known Allergies Allergy Verified 11/15/21 09:50 Family History Father CVA (cerebral vascular accident) Alcoholism Blood clot in vein Respiratory disease Mother Depression Thyroid disorder Grandmother Diabetes Brother Heart disease Surgical History H/O dilation and curettage History of cardioversion (~01/18/21) History of radiofrequency ablation procedure for cardiac arrhythmia (~01/12/21) History of tonsillectomy and adenoidectomy Social History Smoking Status: Never smoker alcohol intake: never substance use type: does not use what type of physical activity do you participate in: none and walking frequency: daily ROS Constitutional Constitutional: Denies anorexia, change in weight, fever(s), night sweats or weakness Eyes Eyes: Denies blurry vision, change in vision, discharge from eye(s) or eye pain Cardiovascular Cardiovascular: Reports chest pain, palpitations and rapid heart rate; Denies claudication, edema or lightheadedness Respiratory/Chest Respiratory/Chest: Denies cough, hemoptysis, shortness of breath at rest or shortness of breath with exertion Gastrointestinal Gastrointestinal: Denies abdominal pain, constipation, diarrhea, hematemesis, hematochezia, melena, nausea or vomiting Genitourinary Genitourinary: Denies dysuria, hematuria, urinary frequency, urinary hesitancy, urinary incontinence or urinary urgency Musculoskeletal Musculoskeletal: Denies back pain, joint pain, joint stiffness, joint swelling, myalgias or neck pain Neurologic Neurologic: Denies abnormal gait, abnormal speech, confusion, dizziness, focal weakness, headache(s), loss of vision, numbness, other visual disturbances, paresthesias, syncope or tingling Psychiatric Psychiatric: Denies anxiety, cognitive impairment, depression, irritability, mood swings or suicidal ideation Endocrine Endocrinology: Denies change in body appearance, cold intolerance, excessive sweating, heat intolerance, polydipsia or polyuria Hematologic/Lymphatic Hematologic/Lymphatic: Denies none, anemia, easy bleeding, easy bruising or lymphadenopathy Allergic/Immunologic Allergic/Immunologic: Denies rhinitis, urticaria, eczemia or asthma Vital Signs Vital Signs Vital Signs: 11/15/21 09:49 11/15/21 10:02 11/15/21 10:14 Temperature 97.8 F Temperature Source Temporal Pulse Rate 85 79 Pulse Rate [Lying] Pulse Rate [Sitting (for 1 minute prior to obtaining)] Pulse Rate [Standing (for 1 minute prior to obtaining)] Respiratory Rate 16 18 Respiratory Effort Normal Non-Labored Blood Pressure 106/81 H 114/82 H Blood Pressure [Lying] Blood Pressure [Sitting (for 1 minute prior to obtaining)] Blood Pressure [Standing (for 1 minute prior to obtaining)] Blood Pressure Mean 89 92 Blood Pressure Mean [Lying] Blood Pressure Mean [Sitting (for 1 minute prior to obtaining)] Blood Pressure Mean [Standing (for 1 minute prior to obtaining)] Blood Pressure Source Blood Pressure Position Blood Pressure Location Pulse Ox 99 96 Oxygen Delivery Method Room Air 11/15/21 10:43 11/15/21 10:46 11/15/21 11:51 Temperature Temperature Source Pulse Rate 78 Pulse Rate [Lying] 75 Pulse Rate [Sitting (for 1 minute prior to obtaining)] 77 Pulse Rate [Standing (for 1 minute prior to obtaining)] 79 Respiratory Rate 15 Respiratory Effort Blood Pressure 89/69 L Blood Pressure [Lying] 98/69 Blood Pressure [Sitting (for 1 minute prior to obtaining)] 98/68 Blood Pressure [Standing (for 1 minute prior to obtaining)] 78/66 L Blood Pressure Mean 75 Blood Pressure Mean [Lying] 78 Blood Pressure Mean [Sitting (for 1 minute prior to obtaining)] 78 Blood Pressure Mean [Standing (for 1 minute prior to obtaining)] 70 Blood Pressure Source Blood Pressure Position Blood Pressure Location Pulse Ox 99 98 Oxygen Delivery Method Room Air Room Air 11/15/21 12:46 11/15/21 13:32 11/15/21 14:30 Temperature 97.1 F L 97.5 F L Temperature Source Temporal Temporal Pulse Rate 76 78 79 Pulse Rate [Lying] Pulse Rate [Sitting (for 1 minute prior to obtaining)] Pulse Rate [Standing (for 1 minute prior to obtaining)] Respiratory Rate 16 20 H 20 H Respiratory Effort Blood Pressure 98/71 106/81 H 101/73 Blood Pressure [Lying] Blood Pressure [Sitting (for 1 minute prior to obtaining)] Blood Pressure [Standing (for 1 minute prior to obtaining)] Blood Pressure Mean 80 89 82 Blood Pressure Mean [Lying] Blood Pressure Mean [Sitting (for 1 minute prior to obtaining)] Blood Pressure Mean [Standing (for 1 minute prior to obtaining)] Blood Pressure Source Monitor Blood Pressure Position Semi-Fowlers Blood Pressure Location Right Arm Pulse Ox 98 100 100 Oxygen Delivery Method Room Air Room Air Room Air 11/15/21 14:51 11/15/21 15:13 11/15/21 15:08 Temperature Temperature Source Pulse Rate 80 Pulse Rate [Lying] 71 Pulse Rate [Sitting (for 1 minute prior to obtaining)] Pulse Rate [Standing (for 1 minute prior to obtaining)] Respiratory Rate Respiratory Effort Blood Pressure Blood Pressure [Lying] 107/82 H Blood Pressure [Sitting (for 1 minute prior to obtaining)] 86/73 L Blood Pressure [Standing (for 1 minute prior to obtaining)] Blood Pressure Mean Blood Pressure Mean [Lying] 90 Blood Pressure Mean [Sitting (for 1 minute prior to obtaining)] 77 Blood Pressure Mean [Standing (for 1 minute prior to obtaining)] Blood Pressure Source Blood Pressure Position Blood Pressure Location Pulse Ox Oxygen Delivery Method Room Air 11/15/21 15:46 Temperature 97.1 F L Temperature Source Temporal Pulse Rate 81 Pulse Rate [Lying] Pulse Rate [Sitting (for 1 minute prior to obtaining)] Pulse Rate [Standing (for 1 minute prior to obtaining)] Respiratory Rate 12 Respiratory Effort Blood Pressure 100/62 Blood Pressure [Lying] Blood Pressure [Sitting (for 1 minute prior to obtaining)] Blood Pressure [Standing (for 1 minute prior to obtaining)] Blood Pressure Mean 74 Blood Pressure Mean [Lying] Blood Pressure Mean [Sitting (for 1 minute prior to obtaining)] Blood Pressure Mean [Standing (for 1 minute prior to obtaining)] Blood Pressure Source Monitor Blood Pressure Position Semi-Fowlers Blood Pressure Location Left Arm Pulse Ox 97 Oxygen Delivery Method Room Air Weight Weight: 61.8 kg Body Mass Index (BMI) 24.9 Physical Exam Const alert, oriented x3, no apparent distress, average body habitus and healthy appearing General Appearance: cooperative, well kempt and well developed Orientation / Consciousness: awake, oriented to person, oriented to place and oriented to time HEENT normocephalic, head/scalp atraumatic, hearing grossly normal bilaterally and moist oral mucous membranes Eyes PERRL, EOMs intact bilaterally and conjunctivae normal Neck supple, no JVD, thyroid normal and no carotid bruits General: trachea midline Resp normal respiratory effort, no retractions, no use of accessory muscles and clear to auscultation bilaterally Auscultation: Negative for rales, rhonchi or wheezes Cardio regular rate, regular rhythm, S1 normal heart sound, S2 normal heart sound, no murmurs, no rub and no gallops GI normal to inspection, nondistended, normoactive bowel sounds, soft to palpation, non-tender and non-distended Extremity no clubbing, cyanosis or edema Skin no rashes or lesions noted General Skin Exam: no breakdown Neuro oriented x3, CN's II-XII intact bilaterally, no focal motor deficits and no sensory deficits noted Sensorium / Orientation: awake and alert Speech: speech normal Psych affect normal Results Lab / Micro Data Result Diagrams: 11/15/21 10:09 11/15/21 10:09 Labs: Laboratory Results - last 24 hr 11/15/21 10:09: WBC 7.1, RBC 4.62, Hgb 15.0, Hct 44.7, MCV 96.8, MCH 32.5 H, MCHC 33.6, RDW Std Deviation 44.7 H, RDW Coeff of Karina 12.5, Plt Count 161, MPV 11.0, Immature Gran % (Auto) 0.400, Neut % (Auto) 72.6 H, Lymph % (Auto) 18.6 L, [place] % (Auto) 7.6, Eos % (Auto) 0.4, Baso % (Auto) 0.4, Absolute Neuts (auto) 5.2, Absolute Lymphs (auto) 1.32, Nucleated RBC % 0 11/15/21 10:09: PT 14.7, INR 1.2, APTT 38.5 H 11/15/21 10:09: Sodium 133 L, Potassium 4.4, Chloride 100, Carbon Dioxide 26.0, Anion Gap 7, BUN 16, Creatinine 0.87, Estim Creat Clear Calc 44.87, Est GFR (MDRD) Af Amer 82, Est GFR (MDRD) Non-Af 67, BUN/Creatinine Ratio 18.4, Glucose 98, Calcium 9.4, Magnesium 2.0, Troponin I High Sens 5 11/15/21 12:23: Troponin I High Sens 6 Radiology Impression Chest X-Ray 11/15/21 10:50 IMPRESSION: Hyperinflation. The lungs are clear. Electronically Signed: Jca Villarreal MD at 11:14 EDT , Assessment & Plan Assessment/Plan (1) Chest pain: PLAN: Plan 1. Precordial chest pain-etiology unclear, patient will be placed in observation status on PCU, cardiac enzymes will be cycled, she will undergo a treadmill nuclear stress test tomorrow if enzymes remain normal. #2 history of atrial fibrillation-status post ablation 2020-patient will be monitored on telemetry, patient is currently on antiarrhythmics #3 moderate mitral valve insufficiency-complicates care, management, recovery, and prognosis Charges/Coding Visit Charges OBSV E&M: 07010 Initial observation care L3
[2021-11-15 16:47] LABS: Troponin-I HS 5 pg/mL (3.0-54.0)
[2021-11-15] MEDS: Acetaminophen 325 MG Tablet 650 MG PO (23:29)
[2021-11-15] MEDS: Flecainide 100 MG Tablet PO (23:30)
[2021-11-15] MEDS: APIXABAN 5 MG TABLET PO (23:30)
[2021-11-16] VITALS (10 sets, daily range): BP systolic 69–118; BP diastolic 52–73; PULSE 66–104; RESP 16–18; TEMP 36.3–36.5; O2SAT 94–97; BMI 24.9
[2021-11-16] MEDS: 0.9% Saline Lock 10 ML Syringe IV ×2 (06:40→22:28)
[2021-11-16] MEDS: Flecainide 100 MG Tablet PO ×2 (06:42→22:17)
--- NOTE | 2021-11-16 09:22 | PCM.CONS.C ---
Assessment & Plan Assessment/Plan (1) Chest pain: PLAN: The patient presents with chest discomfort. It appears somewhat atypical. She has undergone previous noninvasive and invasive valuation as noted. At the present time her cardiac enzymes are negative. Her ECG demonstrates no new acute ECG changes. She is scheduled for upcoming stress nuclear imaging study to further evaluate for any obvious evidence of myocardial ischemia. Depending upon the findings she may or may not need further cardiac evaluation. (2) History of radiofrequency ablation procedure for cardiac arrhythmia: PLAN: She has a history of atrial fibrillation. She has undergone EPS/RFA. She has had recurrence of atrial fibrillation/flutter. This is despite being on medical management including antiarrhythmic therapy. At the present time she will need to continue medical management which would include rate control therapy as deemed appropriate as well as her antiarrhythmic therapy which does seem to assist as she has episodes of sinus rhythm and then paroxysmal atrial fibrillation/flutter. She will continue her anticoagulant therapy unless it needs to be interrupted for an invasive procedure. Otherwise she should maintain contact with her [facility] nuclear control operator to be considered for possible repeat EPS/RFA. (3) Nonrheumatic mitral (valve) prolapse: PLAN: She has a history of MVP. She has undergone noninvasive valuation in the past. She will continue to be followed. (4) Pure hypercholesterolemia: PLAN: She has a history of hyperlipidemia. She is continuing dietary therapy and exercise at this time. Addt'l Comments The patient's case has been discussed and reviewed with the patient and previously with Dr. Walker. This note was generated using a voice recognition system and there may be incorrect words, spelling or punctuation that were not noted when reviewing the office note prior to saving. HPI Consult Data Date of Consult: 11/16/21 HPI Narrative HPI Narrative: GRAHAM SHAH, is a 75 year old white female who presents for cardiovascular consultation for concerns of chest discomfort, fluctuations in her cardiac rate and rhythm, and concerns of changes in her blood pressure with intermittent positional hypotension superimposed upon a history of underlying PACs, PVCs, atrial fibrillation status post [facility] EPS/RFA (01-12-2021), MVP/MR, and hyperlipidemia. She has been having issues at home with intermittent discomforts across her chest where she feels like she has a vague discomfort which is hard to describe. She notes it comes and goes. She believes it may be associated at times with changes in her underlying cardiac rate and rhythm. She does since changes in her rate and rhythm at times. She also notes that she has had symptoms of hypotension especially with positional changes such as being up and ambulating or in the shower. She has not lost consciousness. Otherwise when these episodes not happening she states she feels well. There is been no orthopnea or PND or peripheral pitting edema. Based upon ongoing issues with her cardiac rate and rhythm and her medications she has made contact with her [facility] nuclear control operator - Dr. Malvin Greene. She is waiting to hear from his office follow-up recommendations, etc. including the need for possible repeat EPS/RFA. In the interim based upon her symptoms she contacted the office yesterday. She was asked to report to the emergency department for further evaluation and care. There her cardiac enzymes were negative. Her ECG appeared to demonstrate sinus rhythm with a left axis deviation with nonspecific IVCD. She was subsequent brought into the hospital for additional evaluation and care of her discomforts. While in the hospital she has demonstrated episodes of atrial flutter with controlled ventricular response with no additional new acute electrocardiographic changes. She states she does try and drink plenty of fluids. Her who is with her today states he is concerned that she is not drinking enough fluids. [facility] Medical History Abnormal stress echocardiogram Atrial fibrillation Atrial premature depolarization Chest pain Heart murmur History of back problems Hx of cataract Hx of headache Migraine without aura and without status migrainosus, not intractable Non-rheumatic tricuspid valve insufficiency Nonrheumatic mitral (valve) insufficiency Nonrheumatic mitral (valve) prolapse Palpitations Pure hypercholesterolemia SOB (shortness of breath) Status post left heart catheterization (LHC) (~08/04/18) UTI (urinary tract infection) Ventricular premature depolarization Vision problems Home Medications omega-3 fatty acids 1,000 mg capsule (Fish Oil Concentrate) 2,000 mg PO DAILY SUPPLEMENT 07/01/17 [History Last Taken 11/14/21] glucosamine sulfate 500 mg tablet (Glucosamine) 1,000 mg PO QHS 07/08/18 [History Last Taken 11/14/21] lactobacillus combination no.8 3 billion cell capsule (Adult Probiotic) 3,000 mmu cells PO DAILY HEALTH MAINTENANCE 07/08/18 [History Last Taken 11/14/21] ascorbic acid (vitamin C) 1,000 mg tablet 1 g PO DAILY supplement 09/29/19 [History Last Taken 11/14/21] CalciAIM (Ca, Mg, vit C & D) 1 tspn PO DAILY SUPPLEMENT 04/17/21 [History Last Taken 11/14/21] barley juice powder 1 tspn PO DAILY supplement 04/17/21 [History Last Taken 11/14/21] pea protein powder 1 tspn PO DAILY SUPPLEMENT 04/17/21 [History Last Taken 11/14/21] apixaban 5 mg tablet (Eliquis) 5 mg PO BID #180 tabs 09/20/21 [Rx Last Taken 11/15/21] cholecalciferol (vitamin D3) 50 mcg (2,000 unit) tablet 100 mcg PO DAILY SUPPLEMENT 09/20/21 [History Last Taken 11/15/21] coenzyme Q10 60 mg capsule 120 mg PO DAILY SUPPLEMENT 09/20/21 [History Last Taken 11/14/21] flecainide 100 mg tablet 100 mg PO Q12H 10/17/21 [History Last Taken 11/15/21] acetaminophen 500 mg tablet 500 - 1,000 mg PO DAILY PRN Pain 11/15/21 [History Last Taken 3 Days Ago ~11/12/21] zinc acetate 50 mg (zinc) capsule 50 mg PO DAILY SUPPLEMENT 11/15/21 [History Last Taken 11/14/21] Allergy/AdvReac Type Severity Reaction Status Date / Time No Known Allergies Allergy Verified 11/15/21 09:50 Family History Father CVA (cerebral vascular accident) Alcoholism Blood clot in vein Respiratory disease Mother Depression Thyroid disorder Grandmother Diabetes Brother Heart disease Surgical History H/O dilation and curettage History of cardioversion (~01/18/21) History of radiofrequency ablation procedure for cardiac arrhythmia (~01/12/21) History of tonsillectomy and adenoidectomy Social History Smoking Status: Never smoker alcohol intake: never substance use type: does not use what type of physical activity do you participate in: none and walking frequency: daily ROS Constitutional Constitutional: Reports as per HPI Eyes Eyes: Reports as per HPI ENT HEENT: Reports as per HPI Cardiovascular Cardiovascular: Reports chest pain and palpitations Respiratory/Chest Respiratory/Chest: Reports none Gastrointestinal Gastrointestinal: Reports none Genitourinary Genitourinary: Reports none Musculoskeletal Musculoskeletal: Reports none Integumentary Integumentary: Reports none Neurologic Neurologic: Reports none Physical Exam Const alert, oriented x3, no apparent distress and healthy appearing Orientation / Consciousness: awake HEENT normocephalic, head/scalp atraumatic and hearing grossly normal bilaterally Eyes PERRL, EOMs intact bilaterally, conjunctivae normal and no scleral icterus Neck full ROM, supple and no JVD Carotids: normal carotid upstroke Resp normal respiratory effort and clear to auscultation bilaterally Cardio Rhythm: abnormal rhythm irregularly irregular Heart Sounds: S1 normal, S2 normal and click mid GI normal to inspection, nondistended, normoactive bowel sounds Extremity no pedal edema Skin no rashes or lesions noted Psych mental status grossly normal Risk Stratification Risk Stratification Applicable: No Procedure Criteria Type of Procedure Procedure Type: Elective Elective Risks - COVID COVID Risk Discussion: The surgeon/proceduralist and patient have discussed in detail the risk of exposure to and/or potential harm posed by the COVID-19 virus with having a surgery/procedure at this time versus the risk of delaying the surgery/procedure. It is not possible to know either the risk of delaying the surgery or procedure or chance of getting an infection with perfect accuracy, but a joint decision was made between the patient and the surgeon/proceduralist to proceed at this time with the scheduled surgery/procedure as indicated on the consent form. Objective Data Vital Signs: Vital Signs Temp Pulse Resp BP Pulse Ox O2 Del Method 97.7 F L 99 16 98/66 95 Room Air 11/16/21 06:00 11/16/21 06:39 11/16/21 06:00 11/16/21 06:32 11/16/21 06:00 11/16/21 07:30 Oxygen Delivery Method Room Air Weight: 136 lb 3.931 oz Body Mass Index (BMI) 24.9 Lab / Micro Data Result Diagrams: 11/15/21 10:09 11/15/21 10:09 Labs: Laboratory Results - last 24 hr 11/15/21 10:09: WBC 7.1, RBC 4.62, Hgb 15.0, Hct 44.7, MCV 96.8, MCH 32.5 H, MCHC 33.6, RDW Std Deviation 44.7 H, RDW Coeff of Karina 12.5, Plt Count 161, MPV 11.0, Immature Gran % (Auto) 0.400, Neut % (Auto) 72.6 H, Lymph % (Auto) 18.6 L, [place] % (Auto) 7.6, Eos % (Auto) 0.4, Baso % (Auto) 0.4, Absolute Neuts (auto) 5.2, Absolute Lymphs (auto) 1.32, Nucleated RBC % 0 11/15/21 10:09: PT 14.7, INR 1.2, APTT 38.5 H 11/15/21 10:09: Sodium 133 L, Potassium 4.4, Chloride 100, Carbon Dioxide 26.0, Anion Gap 7, BUN 16, Creatinine 0.87, Estim Creat Clear Calc 44.87, Est GFR (MDRD) Af Amer 82, Est GFR (MDRD) Non-Af 67, BUN/Creatinine Ratio 18.4, Glucose 98, Calcium 9.4, Magnesium 2.0, Troponin I High Sens 5 11/15/21 12:23: Troponin I High Sens 6 11/15/21 16:00: Troponin I High Sens 5 Cardiology Labs/Tests 11/15/21 10:09: WBC 7.1, RBC 4.62, Hgb 15.0, Hct 44.7, MCV 96.8, MCH 32.5 H, MCHC 33.6, Plt Count 161, MPV 11.0, Immature Gran % (Auto) 0.400, Neut % (Auto) 72.6 H, Lymph % (Auto) 18.6 L, [place] % (Auto) 7.6, Eos % (Auto) 0.4, Baso % (Auto) 0.4, Absolute Neuts (auto) 5.2, Nucleated RBC % 0 11/15/21 10:09: PT 14.7, INR 1.2, APTT 38.5 H 11/15/21 10:09: Sodium 133 L, Potassium 4.4, Chloride 100, Carbon Dioxide 26.0, Anion Gap 7, BUN 16, Creatinine 0.87, Est GFR (MDRD) Af Amer 82, Est GFR (MDRD) Non-Af 67, BUN/Creatinine Ratio 18.4, Glucose 98, Calcium 9.4, Magnesium 2.0 Rhythm: As noted above EKG: As noted above Echocardiogram from 07/13/2020: Interpretation Summary Left ventricular systolic function is normal. The estimated ejection fraction is 55 %. The left atrium is severely enlarged. The right atrium is severely enlarged. Moderate diffuse mitral valve thickening. Moderate mitral valve prolapse. Moderate (2+) mitral valve insufficiency. Mild diffuse thickening of the tricuspid valve. Moderate (2+) tricuspid valve insufficiency. Mild focal aortic valve calcification. Mild (1+) pulmonic valve insufficiency. Right ventricular systolic pressure estimated to be 26 mmHg. Transmitral diastolic flow velocities suggest diastolic dysfunction (pseudonormal pattern). Echocardiogram: 08-10-2019 Interpretation Summary Left ventricular systolic function is normal. The estimated ejection fraction is 55 %. The left atrium is moderately enlarged. The right atrium is severely enlarged. Moderate diffuse mitral valve thickening. Moderate mitral valve prolapse. Moderate (2+) eccentric mitral valve insufficiency. Moderate (2+) tricuspid valve insufficiency. Mild (1+) pulmonic valve insufficiency. Trivial pericardial effusion. There are no echocardiographic indications of cardiac tamponade. Right ventricular systolic pressure estimated to be 28 mmHg. Transmitral diastolic flow velocities suggest diastolic dysfunction (pseudonormal pattern). Stress Echocardiogram: 07/21/2018 Interpretation Summary ABNORMAL (ADEQUATE) STRESS ECHOCARDIOGRAM Cardiac Cath: 08/04/2018 CONCLUSIONS Elevated Left Ventricular End Diastolic Pressure Normal LV size, wall motion,and systolic function LVEF: by LV gram 55 % Normal coronary arteries Mitral Valve Prolapse Mild to Moderate RECOMMENDATIONS Risk factor modification Medical therapy CORONARY ANGIOGRAPHY DOMINANCE:? Left Dominant LEFT HEART ASSESSMENT Left Ventricular Ejection Fraction: by LV Gram 55 % LV wall motion not assessed Elevated Left Ventricular End Diastolic Pressure LVEDP: 16 mmHg LEFT MAIN: Angiographically normal LEFT ANTERIOR DESCENDING ARTERY: Angiographically normal CIRCUMFLEX ARTERY: Angiographically normal RAMUS: Angiographically normal RIGHT CORONARY ARTERY: Angiographically normal VALVE FINDINGS: Normal Aortic Valve function Mitral Valve Prolapse Mild to Moderate AORTIC ROOT: Angiographically normal Radiography Diagnostic Testing: Radiology Impression Chest X-Ray 11/15/21 10:50 IMPRESSION: Hyperinflation. The lungs are clear. Electronically Signed: Jac Villarreal MD at 11:14 EDT ,
--- NOTE | 2021-11-16 12:59 | STRESSREP_ITS ---
Stress Test Report Date: 11-16-2021 Procedure: Exercise tolerance test/imaging study Indications: Chest pain; near syncope; atrial fibrillation/flutter Consent: Per the patient Procedure: The patient exercised on a Arun protocol for 3 minutes and 25 seconds completing Stage I and 25 seconds of Stage II achieving a peak heart rate of 166 bpm (113% predicted maximal heart rate) with a peak blood pressure 118/70 mmHg and a peak MET capacity of 5 METs. The baseline ECG demonstrated atrial fibrillation with nonspecific IVCD with nonspecific ST/T wave abnormality. The peak exercise ECG demonstrated the appearance of an irregular wide-complex tachycardia appearing compatible with atrial fibrillation with progression of the underlying IVCD with an acceleration dependent bundle branch block pattern with subsequent slowing and resolution to the baseline rhythm/QRS morphology in recovery. There did not appear to be additional cardiac ectopy/dysrhythmias during exercise or recovery. The functional capacity was considered decreased. There was chest discomfort near peak exercise associated with lightheadedness. The examination was discontinued secondary to lightheadedness and near syncope. Impression: 1. Technically adequate (percent predicted maximal heart rate greater than 85%) exercise tolerance test 2. Peak exercise ECG demonstrated the appearance of an irregular wide-complex tachycardia appearing compatible with atrial fibrillation with progression of the underlying IVCD with an acceleration dependent bundle branch block pattern with subsequent slowing and resolution to the baseline rhythm/QRS morphology in recovery 3. There did not appear to be additional cardiac ectopy/dysrhythmias during exercise or recovery 4. Nuclear images pending Myocardial perfusion imaging study: Technique: The patient was injected with 11.2 mCi of technetium 99m Cardiolite and subsequently rest SPECT Cardiolite nuclear imaging was obtained in the horizontal long, vertical long, and short axis views. The patient exercised on a Arun protocol for 3 minutes and 25 seconds completing Stage I and 25 seconds of Stage II achieving a peak heart rate of 166 bpm (113% predicted maximal heart rate) with a peak blood pressure 118/70 mmHg and a peak MET capacity of 5 METs. The patient was injected with 44.3 mCi of technetium 99m Cardiolite and subsequently stress SPECT Cardiolite nuclear imaging was obtained in the horizontal long, vertical long, and short axis views. A gated Cardiolite study at peak stress was obtained. Interpretation: Rest and stress SPECT Cardiolite nuclear imaging status post realignment, normalization, and attenuation correction, demonstrates the appearance of relative uniform tracer uptake and myocardial perfusion appearing within normal limits. There is end systolic thickening and brightening. The gated Cardiolite study demonstrates myocardial thickening and inward wall motion. The reported LVEF is 71%. Impression: 1. Rest and stress SPECT Cardiolite nuclear imaging demonstrate relative uniform tracer uptake and myocardial perfusion appearing within normal limits. 2. The gated Cardiolite study reports an LVEF of 71%. This note was generated with [employer] software. It may contain incorrect words, spelling, and punctuation that were not noted in checking the note before signing.
[2021-11-16] MEDS: APIXABAN 5 MG TABLET PO ×2 (14:03→22:17)
--- NOTE | 2021-11-16 14:32 | CASEMGMT ---
Patient does not have a Healthcare Power of Mixer Blender or Healthcare Living Will on file at [facility]. Patient is aware they are not on file. Patient's Manuel is her Healthcare Power of Mixer Blender. Rody MACEDO
--- NOTE | 2021-11-16 15:20 | CHAPLAIN ---
Type of Pastoral Visit _x__ Initial Visit ___ Follow-up Visit ___ On-call Visit ___ General Patient Visit ___ Spiritual Assessment ___ Family Conference ___ Bereavement ___ Rapid Response ___ Code Blue ___ Other (describe below) Pastoral Care Referral From _x__ Patient ___ Family ___ Nurse ___ Physician ___ Window Systems Administrator ___ Drawing Checker ___ Other (describe below) Sacrament/Intervention _x__ Active listening ___ Anointing ___ Restorationist ___ Bereavement ___ Communion _x__ Lanny exploration ___ _x__ Life review _x__ Prayer ___ Reconciliation ___ Sacrament of Sick _x__ Supportive presence ___ Wedding ___ Other (describe below) Pastoral Comments patient tells her story of heart concerns; pt is expected to be transferred to [place]; pt spouse is not with her and she is waiting to tell him the news when he calls her; pt expresses disappointment at turn of events but also expresses her strong lanny in God; pt has family support and a good yazdanism connection; patient requests prayer
--- NOTE | 2021-11-16 16:25 | PCM.DC.SUM ---
Providers Date of Admission: 11/16/21 Date of Discharge: 11/16/21 Primary Care Physician: Dr. Vicente Huerta MD Consultations 11/16/21 11:20 Consult: Cardiology Routine Consulting Provider: Krishna Goss Reason for Consult: chest pain EMERGENT Consult: No MD Notified: Yes Date Notified: 11/16/21 Time Notified: 08:00 Method of Notification: Verbal Method of Consult:: In-Person Reason For Visit: CHEST PAIN Diagnosis Discharge Diagnosis (1) Chest pain: Status: Chronic Code(s): R07.9 - Chest pain, unspecified (2) History of radiofrequency ablation procedure for cardiac arrhythmia: Status: Acute Code(s): Z98.890 - Other specified postprocedural states (3) Nonrheumatic mitral (valve) prolapse: Status: Chronic Code(s): I34.1 - Nonrheumatic mitral (valve) prolapse (4) Pure hypercholesterolemia: Status: Chronic Code(s): E78.00 - Pure hypercholesterolemia, unspecified Plan 1. Precordial chest pain-etiology unclear, patient will be placed in observation status on PCU, cardiac enzymes will be cycled, she will undergo a treadmill nuclear stress test tomorrow if enzymes remain normal. #2 history of atrial fibrillation-status post ablation 2020-patient will be monitored on telemetry, patient is currently on antiarrhythmics #3 moderate mitral valve insufficiency-complicates care, management, recovery, and prognosis Medications at Discharge Home Medications omega-3 fatty acids 1,000 mg capsule (Fish Oil Concentrate) 2,000 mg PO DAILY SUPPLEMENT 07/01/17 glucosamine sulfate 500 mg tablet (Glucosamine) 1,000 mg PO QHS 07/08/18 lactobacillus combination no.8 3 billion cell capsule (Adult Probiotic) 3,000 mmu cells PO DAILY HEALTH MAINTENANCE 07/08/18 ascorbic acid (vitamin C) 1,000 mg tablet 1 g PO DAILY supplement 09/29/19 CalciAIM (Ca, Mg, vit C & D) 1 tspn PO DAILY SUPPLEMENT 04/17/21 barley juice powder 1 tspn PO DAILY supplement 04/17/21 pea protein powder 1 tspn PO DAILY SUPPLEMENT 04/17/21 apixaban 5 mg tablet (Eliquis) 5 mg PO BID #180 tabs 09/20/21 cholecalciferol (vitamin D3) 50 mcg (2,000 unit) tablet 100 mcg PO DAILY SUPPLEMENT 09/20/21 coenzyme Q10 60 mg capsule 120 mg PO DAILY SUPPLEMENT 09/20/21 flecainide 100 mg tablet 100 mg PO Q12H 10/17/21 acetaminophen 500 mg tablet 500 - 1,000 mg PO DAILY PRN Pain 11/15/21 zinc acetate 50 mg (zinc) capsule 50 mg PO DAILY SUPPLEMENT 11/15/21 Weight / BMI Weight Weight: 61.8 kg Body Mass Index (BMI) 24.9 ABG / Lab / Microbiology Data Result Diagrams: 11/15/21 10:09 11/15/21 10:09 Laboratory: Laboratory Results - last 24 hr 11/15/21 16:00: Troponin I High Sens 5 Discharge Plan Admission Admit Date/Time: 11/16/21 13:16 Attending Provider: Augustine Walker Primary Care Provider: Vicente Huerta Consulting Providers: Krishna Goss Discharge Orders/Prescriptions Prescriptions: No Action omega-3 fatty acids [Fish Oil Concentrate] 1,000 mg capsule 2,000 mg PO DAILY Adult Probiotic 3 billion cell capsule 3,000 mmu cells PO DAILY glucosamine sulfate [Glucosamine] 500 mg tablet 1,000 mg PO QHS ascorbic acid (vitamin C) 1,000 mg tablet 1 g PO DAILY barley juice powder 1 tspn PO DAILY pea protein powder 1 tspn PO DAILY CalciAIM (Ca, Mg, vit C & D) 1 tspn PO DAILY cholecalciferol (vitamin D3) 50 mcg (2,000 unit) tablet 100 mcg PO DAILY coenzyme Q10 60 mg capsule 120 mg PO DAILY Eliquis 5 mg tablet 5 mg PO BID Qty: 180 4RF acetaminophen 500 mg Tablet 500 - 1,000 mg PO DAILY PRN (Reason: Pain) zinc acetate 50 mg (zinc) Capsule 50 mg PO DAILY flecainide 100 mg tablet 100 mg PO Q12H Referrals / Follow Up: Vicente Huerta MD [Primary Care Provider] - Disposition Discharge Orders: Discharge Patient (Routine); Ordered 11/16/21 Ordered By: Dr. Augustine Walker
--- NOTE | 2021-11-16 19:20 | PCM.PN.HOSP ---
Subjective Subjective Patient was seen and examined today, she had a stress test today that was negative for reversible ischemia, I talked at length at length with cardiology today, during the stress test patient was in atrial fibrillation and her heart rate bumped up into the 160s and she became hypotensive and luckily the test was able to be completed but cardiology recommended that the patient be transferred to [facility] for EP studies, I made arrangements for the patient to go to [facility] and [facility] excepted her, however, this afternoon initially they agreed to transfer her and then called back later to states she would not be transferred. At the time of this dictation, her transfer to [facility] is pending at this time. Patient remains medically stable at this time. Objective Data Objective Data Vital Signs: Vital Signs Temp Pulse Resp BP Pulse Ox O2 Del Method 97.7 F L 73 18 99/52 L 95 Room Air 11/16/21 16:01 11/16/21 16:01 11/16/21 16:01 11/16/21 16:01 11/16/21 16:01 11/16/21 16:01 Oxygen Delivery Method Room Air Weight: 61.8 kg Body Mass Index (BMI) 24.9 Intake & Output: Intake and Output for Last 24 Hours 11/14/21 11/15/21 11/16/21 23:59 23:59 23:59 Intake Total 400 / 400 Balance 400 / 400 Lab / Micro Data Result Diagrams: 11/15/21 10:09 11/15/21 10:09 Physical Exam Const alert, oriented x3, no apparent distress and healthy appearing General Appearance: cooperative, well kempt and well developed Orientation / Consciousness: awake, oriented to person, oriented to place and oriented to time HEENT normocephalic, head/scalp atraumatic and moist oral mucous membranes Eyes PERRL, EOMs intact bilaterally and conjunctivae normal Neck supple, no JVD, thyroid normal and no carotid bruits General: trachea midline Resp normal respiratory effort, no retractions, no use of accessory muscles and clear to auscultation bilaterally Auscultation: Negative for rales, rhonchi or wheezes Cardio no murmurs, no rub and no gallops Cardio Narrative: Heart rate and rhythm is irregular GI normal to inspection, nondistended, normoactive bowel sounds, soft to palpation, non-tender and non-distended Extremity no clubbing, cyanosis or edema Skin no rashes or lesions noted General Skin Exam: no breakdown Neuro oriented x3, CN's II-XII intact bilaterally, no focal motor deficits and no sensory deficits noted Sensorium / Orientation: awake and alert Speech: speech normal Psych affect normal Assessment & Plan Assessment/Plan (1) Irregular heart rhythm: PLAN: Plan 1. Atrial fibrillation with RVR-patient's rate is currently controlled at this time, we are awaiting a bed for the patient at [facility] EP unit, she will remain on her present meds at this time #2 chest pain-musculoskeletal in nature, patient stress test today was negative for reversible ischemia. #3 chronic use of full bmrkofufoxqymyp-Xfsfknm-tjtejms will remain on this medication at this time Charges/Coding Visit Charges Inpatient E&M: 15903 Init Hosp L3
[2021-11-16] MEDS: Acetaminophen 325 MG Tablet 650 MG PO (22:28)
[2021-11-17] VITALS (10 sets, daily range): BP systolic 89–108; BP diastolic 64–75; PULSE 61–98; RESP 12–20; TEMP 36.3–36.6; O2SAT 96–98
[2021-11-17] MEDS: Flecainide 100 MG Tablet PO ×2 (09:29→21:02)
[2021-11-17] MEDS: APIXABAN 5 MG TABLET PO ×2 (09:29→21:02)
--- NOTE | 2021-11-17 12:39 | NURSING ---
Verbal report given to Rashaad Valero RN who is assuming care at this time.
--- NOTE | 2021-11-17 15:10 | PCM.PN.HOSP ---
Subjective Subjective Patient was seen and examined today, she remains in atrial fibrillation at a controlled rate at this time. Patient does not complain of any chest pain or shortness of breath. Objective Data Objective Data Vital Signs: Vital Signs Temp Pulse Resp BP Pulse Ox O2 Del Method 97.4 F L 89 16 92/70 96 Room Air 11/17/21 15:07 11/17/21 15:07 11/17/21 15:07 11/17/21 15:07 11/17/21 15:07 11/17/21 15:07 Oxygen Delivery Method Room Air Weight: 61.8 kg Body Mass Index (BMI) 24.9 Intake & Output: Intake and Output for Last 24 Hours 11/15/21 11/16/21 11/17/21 23:59 23:59 23:59 Intake Total 400 / 400 Balance 400 / 400 Lab / Micro Data Result Diagrams: 11/15/21 10:09 11/15/21 10:09 Physical Exam Narrative alert, oriented x3, no apparent distress and healthy appearing General Appearance: cooperative, well kempt and well developed Orientation / Consciousness: awake, oriented to person, oriented to place and oriented to time HEENT normocephalic, head/scalp atraumatic and moist oral mucous membranes Eyes PERRL, EOMs intact bilaterally and conjunctivae normal Neck supple, no JVD, thyroid normal and no carotid bruits General: trachea midline Resp normal respiratory effort, no retractions, no use of accessory muscles and clear to auscultation bilaterally Auscultation: Negative for rales, rhonchi or wheezes Cardio no murmurs, no rub and no gallops Cardio Narrative: Heart rate and rhythm is irregular GI normal to inspection, nondistended, normoactive bowel sounds, soft to palpation, non-tender and non-distended Extremity no clubbing, cyanosis or edema Skin no rashes or lesions noted General Skin Exam: no breakdown Neuro oriented x3, CN's II-XII intact bilaterally, no focal motor deficits and no sensory deficits noted Sensorium / Orientation: awake and alert Speech: speech normal Psych affect normal Assessment & Plan Assessment/Plan (1) Orthostatic hypotension: (2) Irregular heart rhythm: PLAN: Plan 1. Atrial fibrillation with RVR-patient's rate is currently controlled at this time, we are awaiting a bed for the patient at [facility] EP unit, she will remain on her present meds at this time #2 chest pain-musculoskeletal in nature, patient stress test today was negative for reversible ischemia. #3 chronic use of full rcfgasfmpfbxmqv-Shyrbec-zcsuwdq will remain on this medication at this time Charges/Coding Visit Charges Inpatient E&M: 48445 Subs Hosp L2
--- NOTE | 2021-11-17 18:16 | NURSING ---
Charting reviewed with Rashaad Valero RN
[2021-11-17] MEDS: Acetaminophen 325 MG Tablet 650 MG PO (21:05)
[2021-11-18 02:59] VITALS: PULSE 59
[2021-11-18 03:04] VITALS: BP 101/63; PULSE 62; RESP 18; TEMP 36.3; O2SAT 97
--- NOTE | 2021-11-18 05:12 | NURSING ---
This RN called [facility] main campus to give report to nurse Durant and notified her of the transport ETA.
[2021-11-18 06:03] VITALS: BP 116/78; PULSE 58; RESP 18; TEMP 36.2; O2SAT 98
[2021-11-18 07:00] VITALS: PULSE 58
[2021-11-18 08:20] VITALS: BP 124/78; PULSE 62; RESP 16; TEMP 36.6; O2SAT 97
[2021-11-18] MEDS: Flecainide 100 MG Tablet PO (08:28)
[2021-11-18] MEDS: APIXABAN 5 MG TABLET PO (08:29)
--- NOTE | 2021-11-18 09:29 | DS.PCM_ITS ---
Providers Date of Admission: 11/16/21 Date of Discharge: 11/18/21 Primary Care Physician: Dr. Vicente Huerta MD Consultations 11/16/21 11:20 Consult: Cardiology Routine Consulting Provider: Krishna Goss Reason for Consult: chest pain EMERGENT Consult: No MD Notified: Yes Date Notified: 11/16/21 Time Notified: 08:00 Method of Notification: Verbal Method of Consult:: In-Person Reason For Visit: CHEST PAIN Diagnosis Discharge Diagnosis (1) Orthostatic hypotension: Status: Acute Code(s): I95.1 - Orthostatic hypotension (2) Irregular heart rhythm: Status: Acute Code(s): I49.9 - Cardiac arrhythmia, unspecified Plan 1. Atrial fibrillation with RVR-patient's rate is currently controlled at this time, we are awaiting a bed for the patient at [facility] EP unit, she will remain on her present meds at this time #2 chest pain-musculoskeletal in nature, patient stress test today was negative for reversible ischemia. #3 chronic use of full pwbmgphtqxlmqrr-Dqvrdal-apisafz will remain on this medication at this time Medications at Discharge Home Medications omega-3 fatty acids 1,000 mg capsule (Fish Oil Concentrate) 2,000 mg PO DAILY SUPPLEMENT 07/01/17 glucosamine sulfate 500 mg tablet (Glucosamine) 1,000 mg PO QHS 07/08/18 lactobacillus combination no.8 3 billion cell capsule (Adult Probiotic) 3,000 mmu cells PO DAILY HEALTH MAINTENANCE 07/08/18 ascorbic acid (vitamin C) 1,000 mg tablet 1 g PO DAILY supplement 09/29/19 CalciAIM (Ca, Mg, vit C & D) 1 tspn PO DAILY SUPPLEMENT 04/17/21 barley juice powder 1 tspn PO DAILY supplement 04/17/21 pea protein powder 1 tspn PO DAILY SUPPLEMENT 04/17/21 apixaban 5 mg tablet (Eliquis) 5 mg PO BID #180 tabs 09/20/21 cholecalciferol (vitamin D3) 50 mcg (2,000 unit) tablet 100 mcg PO DAILY SUPPLEMENT 09/20/21 coenzyme Q10 60 mg capsule 120 mg PO DAILY SUPPLEMENT 09/20/21 flecainide 100 mg tablet 100 mg PO Q12H 10/17/21 acetaminophen 500 mg tablet 500 - 1,000 mg PO DAILY PRN Pain 11/15/21 zinc acetate 50 mg (zinc) capsule 50 mg PO DAILY SUPPLEMENT 11/15/21 Hospital Course Operations None Procedures Nuclear stress test Summary of Care Provided Minutes Spent on Discharge: 31 Hospital Course: This 75-year-old white female was seen in the emergency room at [facility] with complaints of chest pain, she underwent a work-up in the emergency room, cardiac enzymes were not elevated. EKG showed no evidence of ischemic changes. Patient was placed into observation status initially on PCU and underwent a nuclear stress test, during the nuclear stress test the patient's heart rate increased-she had gone into atrial fibrillation several hours before the stress test-and cardiology was able to complete the nuclear stress test with the patient had to sit down abruptly because she became hypotensive. It was recommended that the patient be transferred to a tertiary facility for EP evaluation, she had been seen at the [facility] in the [facility] and had an EP physician. Patient had undergone ablation in the past. Patient remained in atrial fibrillation during her hospital stay, rate was controlled, patient's nuclear stress test did not show any evidence of reversible ischemia. On 11/18/2021, patient was transferred to the [facility] for further treatment, she was not seen by myself on that date. Patient was believed to be in stable condition at the time of discharge. Due to the fact the patient was not seen and examined on 11/18/2021, a discharge code was not entered for that date. Weight / BMI Weight Weight: 61.8 kg Body Mass Index (BMI) 24.9 ABG / Lab / Microbiology Data Result Diagrams: 11/15/21 10:09 11/15/21 10:09 Meaningful Use Info Meaningful Use Diagnoses (Choose all that apply): None applicable Discharge Plan Admission Admit Date/Time: 11/16/21 13:16 Attending Provider: Augustine Walker Primary Care Provider: Vicente Huerta Consulting Providers: Krishna Goss Discharge Orders/Prescriptions Prescriptions: No Action omega-3 fatty acids [Fish Oil Concentrate] 1,000 mg capsule 2,000 mg PO DAILY Adult Probiotic 3 billion cell capsule 3,000 mmu cells PO DAILY glucosamine sulfate [Glucosamine] 500 mg tablet 1,000 mg PO QHS ascorbic acid (vitamin C) 1,000 mg tablet 1 g PO DAILY barley juice powder 1 tspn PO DAILY pea protein powder 1 tspn PO DAILY CalciAIM (Ca, Mg, vit C & D) 1 tspn PO DAILY cholecalciferol (vitamin D3) 50 mcg (2,000 unit) tablet 100 mcg PO DAILY coenzyme Q10 60 mg capsule 120 mg PO DAILY Eliquis 5 mg tablet 5 mg PO BID Qty: 180 4RF acetaminophen 500 mg Tablet 500 - 1,000 mg PO DAILY PRN (Reason: Pain) zinc acetate 50 mg (zinc) Capsule 50 mg PO DAILY flecainide 100 mg tablet 100 mg PO Q12H Referrals / Follow Up: Vicente Huerta MD [Primary Care Provider] - Disposition Disposition (needs filled in before D/C Order can be placed): [facility]
--- NOTE | 2021-11-18 09:56 | NURSING ---
Charting reviewed with Rashaad Valero RN
== END 2021-11-18 09:13 | disposition short-term general hospital (02) | DRG 309 ==
LOC: ED 13:32 → PCU 14:08
PROVIDERS: Admitting Provider Internal Medicine; Emergency Provider Emergency Medicine; PCP Family Medicine; Visit Provider Internal Medicine
DX: I48.0 Paroxysmal atrial fibrillation (principal); D68.69 Other thrombophilia; I48.92 Unspecified atrial flutter; E78.00 Pure hypercholesterolemia, unspecified; I95.1 Orthostatic hypotension; I34.1 Nonrheumatic mitral (valve) prolapse; R07.89 Other chest pain; Z79.01 Long term (current) use of anticoagulants; Z79.899 Other long term (current) drug therapy; Z82.49 Family history of ischemic heart disease and other diseases of the circulatory system
CPT/HCPCS: 71045; 78452; 80048; 83735; 84484; 85025; 85610; 85730; 93005; 93017; 99285; A9500; J7040; A4216

== ENCOUNTER → 2021-12-27 | Outpatient (CLI) | payer MEDICARE, OTHER, SELFPAY ==
[2021-12-27 18:09] LABS: Mucous, Urine 0 SEEN /hpf (<or=2+); Red Blood Cells-Urine 0 SEEN /hpf (0-5); Squamous Epithelial Cells - UA 0 SEEN /hpf (5-10)
[2021-12-27 18:34] LABS: Color, Urine Straw (Yellow); Glucose, Dipstick Normal (Normal); Ketone-Dipstick Negative (Negative); Leukocyte Esterase-Dipstick 100 /ul (Negative); Nitrite-Dipstick Negative (Negative); Occult Blood-Urine Negative /ul (Negative); Protein-Dipstick Negative (Negative); Specific Gravity, Urine 1.015 (1.002-1.030); Urine Bilirubin Dipstick Negative (Negative); Urine Clarity Clear (Clear); Urine Urobilinogen Normal (Normal)
[2021-12-27 18:40] LABS: White Blood Cells 5-10 SEEN /hpf (0-5)
[2021-12-27 18:41] LABS: Bacteria RARE /hpf (None Seen)
== END | disposition home or self-care (01) ==
PROVIDERS: PCP Family Medicine; Visit Provider Nurse Practitioner Family
DX: R30.0 Dysuria (principal)
CPT/HCPCS: 81001; 87086; 87088; 87186

== ENCOUNTER → 2022-04-30 | Outpatient (CLI) | payer MEDICARE, OTHER, SELFPAY ==
[2022-04-30 12:02] LABS: Absolute Lymphocyte Count 1.16 X10^3/uL (0.83-4.51); Absolute Neutrophil Count 2.8 X10^3/uL (2.0-7.7); Basophil# 0.04 X10^3/uL; Basophil% 0.9 % (0-1); Eosinophil# 0.09 X10^3/uL; Eosinophils% 1.9 % (0-5); Hematocrit 42.5 % (37-47); Hemoglobin 13.9 g/dL (12.0-15.0); Lymphocyte # 1.16 X10^3/ul (0.83-4.51); Lymphocyte % 24.9 % (19-41); Mean Corp Hgb Conc 32.7 g/dL (32-36); Mean Corpuscular Hgb 32.3 pg (27.0-32.0); Mean Corpuscular Volume 98.6 fL (81-99); Mean Platelet Vol. 11.3 fl (6.2-12.0); Monocyte# 0.58 X10^3/uL; Monocyte% 12.5 % (0-10); NRBC Flagged by Analyzer 0 % (0-5); Neutrophil # 2.77 X10^3/uL (2.7-7.7); Neutrophil % 59.6 % (47-70); Platelet Count 153 K/mm3 (150-450); RBC Distribution Width CV 12.8 % (11.6-14.6); RBC Distribution Width SD 46.5 fl (35.1-43.9); Red Blood Count 4.31 M/mm3 (4.2-5.4); White Blood Count 4.7 K/mm3 (4.4-11.0)
[2022-04-30 12:23] LABS: Vitamin B12 740 pg/mL (211-911); Vitamin D,25 Hydroxy 44.8 ng/mL
[2022-04-30 12:42] LABS: ALB/GLOB Ratio 1.2 RATIO (0.9-2.4); AST(SGOT) 18 U/L (15-37); Alanine Aminotransfer ALT/SGPT 28 U/L (13-56); Albumin, Serum 3.9 g/dL (3.2-5.0); Alkaline Phosphatase 90 U/L (45-117); Anion Gap 8 (5-15); BUN 18 mg/dL (7-18); BUN/Creat Ratio 21.8 RATIO (10-20); Calcium,Total 9.3 mg/dL (8.5-10.1); Chloride 103 mmol/L (98-107); Creatinine, Serum 0.83 mg/dL (0.55-1.02); EST Glomerular Filtration Rate 71 mL/min (>60); Est Glom Filt Rate - Afr Amer 86 mL/min (>60); Globulin 3.3 g/dL (2.2-4.2); Glucose 65 mg/dL (74-106); Magnesium 2.1 mg/dL (1.6-2.6); Potassium 3.7 mmol/L (3.5-5.1); Protein, Total 7.2 g/dL (6.4-8.2); Sodium Level 137 mmol/L (136-145); T4 Free Direct 0.92 ng/dL (0.76-1.46); Thyroid Stim Hormone (TSH) 3.22 uIU/mL (0.358-3.74)
== END | disposition home or self-care (01) ==
LOC: MFPLAB 09:43
PROVIDERS: PCP Family Medicine; Visit Provider Family Medicine
DX: R53.83 Other fatigue (principal); I48.92 Unspecified atrial flutter; E55.9 Vitamin D deficiency, unspecified
CPT/HCPCS: 36415; 80053; 82306; 82607; 83735; 84439; 84443; 85025

== ENCOUNTER → 2022-08-21 | Outpatient (CLI) | payer MEDICARE, OTHER, SELFPAY ==
--- NOTE | 2022-08-21 12:50 | CDU_ITS ---
Reason For Study: Rt Carotid Bruit Rt. Velocities/BP Lt. Velocities/BP Prox CCA 68/21 cm/sec. Prox CCA 65/17 cm/sec. Mid CCA 69/21 cm/sec. Mid CCA 69/24 cm/sec. Dist CCA 46/15 cm/sec. Dist CCA 56/22 cm/sec. Prox ICA 52/15 cm/sec. Prox ICA 45/17 cm/sec. Mid ICA 55/22 cm/sec. Mid ICA 60/27 cm/sec. Dist ICA 73/29 cm/sec. Dist ICA 105/31 cm/sec. Rt. ICA/CCA = 1.1. Lt. ICA/CCA = 1.5. Prox ECA 45/8 cm/sec. Prox ECA 55/13 cm/sec. Rt. Vert. 39/13 cm/sec. Lt. Vert. 28/8 cm/sec. Right Extracranial There is intimal thickening but no significant atherosclerotic plaque noted in the right common carotid artery. There is intimal thickening but no significant atherosclerotic plaque noted in the right internal carotid artery. The right internal carotid artery is very tortuous. There is intimal thickening but no significant atherosclerotic plaque noted in the right external carotid artery. Antegrade flow is noted in the right vertebral artery. Left Extracranial There is intimal thickening but no significant atherosclerotic plaque noted in the left common carotid artery. There is intimal thickening but no significant atherosclerotic plaque noted in the left internal carotid artery. The left internal carotid artery is very tortuous. There is intimal thickening but no significant atherosclerotic plaque noted in the left external carotid artery. Antegrade flow is noted in the left vertebral artery. VL/Carotid Duplex Ultrasound Interpretation Summary Normal right extracranial internal carotid. Normal left extracranial internal carotid. Patent and antegrade vertebrals bilaterally. Ordering Physician: Harsha Willard Referring Physician: Vicente Huerta Performed By: Ruth Martinez, AUDREY, RVT
== END | disposition home or self-care (01) ==
LOC: CVS 12:49
PROVIDERS: PCP Family Medicine; Referring Provider Psychiatry & Neurology Neurology; Visit Provider Psychiatry & Neurology Neurology
DX: R09.89 Other specified symptoms and signs involving the circulatory and respiratory systems (principal)
CPT/HCPCS: 93880

== ENCOUNTER → 2022-08-29 | Outpatient (CLI) | payer MEDICARE, OTHER, SELFPAY | END | disposition home or self-care (01) | LOC: SL 13:22 | PROVIDERS: PCP Family Medicine; Referring Provider Nurse Practitioner Acute Care; Visit Provider Nurse Practitioner Acute Care | DX: G47.10 Hypersomnia, unspecified (principal) | CPT/HCPCS: 95806 ==

== ENCOUNTER → 2022-09-25 | Outpatient (CLI) | payer MEDICARE, OTHER, SELFPAY | END | disposition home or self-care (01) | PROVIDERS: PCP Family Medicine; Referring Provider Nurse Practitioner Family; Visit Provider Nurse Practitioner Family | DX: N39.0 Urinary tract infection, site not specified (principal) | CPT/HCPCS: 87086; 87088; 87186 ==

== ENCOUNTER → 2022-10-30 | Outpatient (CLI) | payer MEDICARE, OTHER, SELFPAY ==
[2022-10-30 12:31] LABS: Absolute Lymphocyte Count 1.18 X10^3/uL (0.83-4.51); Absolute Neutrophil Count 4.1 X10^3/uL (2.0-7.7); Basophil# 0.04 X10^3/uL; Basophil% 0.7 % (0-1); Eosinophils% 1.6 % (0-5); Hematocrit 43.2 % (37-47); Hemoglobin 13.9 g/dL (12.0-15.0); Lymphocyte # 1.18 X10^3/ul (0.83-4.51); Lymphocyte % 19.4 % (19-41); Mean Corp Hgb Conc 32.2 g/dL (32-36); Mean Corpuscular Hgb 32.4 pg (27.0-32.0); Mean Corpuscular Volume 100.7 fL (81-99); Mean Platelet Vol. 11.4 fl (6.2-12.0); Monocyte# 0.59 X10^3/uL; Monocyte% 9.7 % (0-10); NRBC Flagged by Analyzer 0 % (0-5); Neutrophil # 4.14 X10^3/uL (2.7-7.7); Neutrophil % 68.1 % (47-70); Platelet Count 161 K/mm3 (150-450); RBC Distribution Width CV 12.8 % (11.6-14.6); RBC Distribution Width SD 47.8 fl (35.1-43.9); Red Blood Count 4.29 M/mm3 (4.2-5.4); White Blood Count 6.1 K/mm3 (4.4-11.0)
[2022-10-30 12:59] LABS: Vitamin D,25 Hydroxy 66.1 ng/mL
[2022-10-30 13:05] LABS: ALB/GLOB Ratio 1.2 RATIO (0.9-2.4); AST(SGOT) 12 U/L (15-37); Alanine Aminotransfer ALT/SGPT 21 U/L (13-56); Albumin, Serum 3.8 g/dL (3.2-5.0); Alkaline Phosphatase 86 U/L (45-117); Anion Gap 5 (5-15); BUN 16 mg/dL (7-18); BUN/Creat Ratio 22.7 RATIO (10-20); Calcium,Total 9.4 mg/dL (8.5-10.1); Chloride 105 mmol/L (98-107); EST Glomerular Filtration Rate 86 mL/min (>60); Est Glom Filt Rate - Afr Amer 104 mL/min (>60); Globulin 3.3 g/dL (2.2-4.2); Glucose 93 mg/dL (74-106); Magnesium 2.5 mg/dL (1.6-2.6); Potassium 4.1 mmol/L (3.5-5.1); Protein, Total 7.1 g/dL (6.4-8.2); Sodium Level 137 mmol/L (136-145)
== END | disposition home or self-care (01) ==
LOC: MFPLAB 10:52
PROVIDERS: PCP Family Medicine; Visit Provider Family Medicine
DX: I48.92 Unspecified atrial flutter (principal); E55.9 Vitamin D deficiency, unspecified
CPT/HCPCS: 36415; 80053; 82306; 83735; 85025

== ENCOUNTER → 2022-11-21 | Outpatient (CLI) | payer MEDICARE, OTHER, SELFPAY ==
--- NOTE | 2022-11-21 11:07 | ECHOD_ITS ---
Reason For Study: DIZZINESS AND GIDDINESS Procedure This was a 2D Doppler, Color Flow transthoracic echocardiogram. Exam performed in department. Left Ventricle Normal LV size. Left ventricular systolic function is normal. The estimated ejection fraction is 60 %. No regional wall motion abnormalities noted. Right Ventricle Normal RV size. Normal systolic function. Atria The left atrium is moderately enlarged. The right atrium is mildly enlarged. Mitral Valve Moderate mitral valve prolapse. Mild (1+) eccentric mitral valve insufficiency. Tricuspid Valve Normal tricuspid valve. Mild tricuspid valve insufficiency. Pulmonary artery systolic pressure is 35 mmHg. Aortic Valve Trisinus/trileaflet aortic valve. Mild (1+) aortic valve insufficiency. Pulmonic Valve Normal pulmonic valve. Great Vessels Normal aortic root. The pulmonary artery is normal size. Normal inferior vena cava. Pericardium/Pleural No pericardial effusion. MMode/2D Measurements & Calculations LVIDd: 4.9 cm IVSd: 0.92 cm Ao root diam: 3.1 cm LVIDs: 3.8 cm LVPWd: 1.1 cm RVDd: 3.6 cm FS: 22.7 % LAV(MOD-bp): 78.6 ml LVAd ap4: 25.8 cm2 LVAd ap2: 25.3 cm2 LAV(MOD-bp) Indexed: 48.3 ml/m2 LVLd ap4: 6.5 cm LVLd ap2: 6.5 cm LAV(MOD-sp2): 75.9 ml EDV(MOD-sp4): 84.4 ml EDV(MOD-sp2): 84.4 ml LAV(MOD-sp4): 69.4 ml EDV(sp4-el): 87.2 ml EDV(sp2-el): 84.0 ml LVAs ap4: 17.4 cm2 LVAs ap2: 16.7 cm2 LVLs ap4: 6.0 cm LVLs ap2: 6.0 cm ESV(MOD-sp4): 42.5 ml ESV(MOD-sp2): 40.5 ml ESV(sp4-el): 42.7 ml ESV(sp2-el): 39.5 ml EF(MOD-sp4): 49.6 % EF(MOD-sp2): 52.0 % EF(sp4-el): 51.1 % SV(MOD-sp4): 41.9 ml SV(MOD-sp2): 43.9 ml SV(sp4-el): 44.6 ml LA dimension(2D): 4.3 cm LA A4 area: 20.9 cm2 RA A4 area: 26.6 cm2 TAPSE: 1.9 cm Time Measurements MV dec time: 0.20 sec Doppler Measurements & Calculations MV E max gutierrez: 45.3 cm/sec Lat Peak E' Gutierrez: 5.3 cm/sec Med Peak E' Gutierrez: 6.6 cm/sec MV A max gutierrez: 29.7 cm/sec E/E' lat: 8.6 E/E' med: 6.8 MV E/A: 1.5 MV dec slope: 231.6 cm/sec2 Ao V2 max: 90.9 cm/sec LV V1 max: 65.2 cm/sec Ao max P.3 mmHg LV V1 max P.7 mmHg Ao V2 mean: 65.3 cm/sec LV V1 mean P.96 mmHg Ao mean P.9 mmHg LV V1 mean: 45.5 cm/sec Ao V2 VTI: 20.3 cm LV V1 VTI: 13.7 cm AV (velocity ratio): 0.68 MR max gutierrez: 559.0 cm/sec PA V2 max: 73.7 cm/sec TR max gutierrez: 280.2 cm/sec MR max P.0 mmHg PA V2 mean: 43.5 cm/sec TR max P.4 mmHg MR mean gutierrez: 420.7 cm/sec MR mean P.5 mmHg MR VTI: 165.5 cm ECHO/Echo Complete Interpretation Summary Normal LV size. Left ventricular systolic function is normal. The estimated ejection fraction is 60 %. Mild (1+) eccentric mitral valve insufficiency. Moderate mitral valve prolapse. Ordering Physician: Екатерина Espitia Referring Physician: Vicente Huerta Performed By: Nava Sanderson, ELISEOCS, RVT
== END | disposition home or self-care (01) ==
LOC: CVS 11:06
PROVIDERS: PCP Family Medicine; Referring Provider Nurse Practitioner Gerontology; Visit Provider Nurse Practitioner Gerontology
DX: R42 Dizziness and giddiness (principal); I48.0 Paroxysmal atrial fibrillation; R53.83 Other fatigue; I08.1 Rheumatic disorders of both mitral and tricuspid valves; I49.1 Atrial premature depolarization; I49.3 Ventricular premature depolarization; Z98.890 Other specified postprocedural states
CPT/HCPCS: 93306

== ENCOUNTER 2023-05-16 10:07 | Outpatient (CLI) | payer MEDICARE, OTHER, SELFPAY ==
[2023-05-16 12:21] LABS: Absolute Lymphocyte Count 1.08 X10^3/uL (0.83-4.51); Absolute Neutrophil Count 3.1 X10^3/uL (2.0-7.7); Basophil# 0.03 X10^3/uL; Basophil% 0.6 % (0-1); Eosinophil# 0.08 X10^3/uL; Eosinophils% 1.7 % (0-5); Hematocrit 41.5 % (37-47); Hemoglobin 13.7 g/dL (12.0-15.0); Lymphocyte # 1.08 X10^3/ul (0.83-4.51); Lymphocyte % 22.5 % (19-41); Mean Corpuscular Hgb 32.4 pg (27.0-32.0); Mean Corpuscular Volume 98.1 fL (81-99); Mean Platelet Vol. 11.2 fl (6.2-12.0); Monocyte# 0.46 X10^3/uL; Monocyte% 9.6 % (0-10); NRBC Flagged by Analyzer 0 % (0-5); Neutrophil # 3.14 X10^3/uL (2.7-7.7); Neutrophil % 65.4 % (47-70); Platelet Count 151 K/mm3 (150-450); RBC Distribution Width CV 12.9 % (11.6-14.6); RBC Distribution Width SD 46.4 fl (35.1-43.9); Red Blood Count 4.23 M/mm3 (4.2-5.4); White Blood Count 4.8 K/mm3 (4.4-11.0)
[2023-05-16 12:33] LABS: Vitamin D,25 Hydroxy 64.7 ng/mL
[2023-05-16 12:36] LABS: ALB/GLOB Ratio 1.2 RATIO (0.9-2.4); AST(SGOT) 15 U/L (15-37); Alanine Aminotransfer ALT/SGPT 19 U/L (13-56); Albumin, Serum 3.7 g/dL (3.2-5.0); Alkaline Phosphatase 81 U/L (45-117); Anion Gap 3 (5-15); BUN 13 mg/dL (7-18); BUN/Creat Ratio 16.6 RATIO (10-20); Calcium,Total 9.2 mg/dL (8.5-10.1); Chloride 106 mmol/L (98-107); Cholesterol 202 mg/dL (200); Creatinine, Serum 0.78 mg/dL (0.55-1.02); EST Glomerular Filtration Rate 76 mL/min (>60); Est Glom Filt Rate - Afr Amer 92 mL/min (>60); Globulin 3.2 g/dL (2.2-4.2); Glucose 87 mg/dL (74-106); High Density Lipoprotein 75 mg/dL; Magnesium 2.5 mg/dL (1.6-2.6); Protein, Total 6.9 g/dL (6.4-8.2); Sodium Level 138 mmol/L (136-145); Thyroid Stim Hormone (TSH) 2.29 uIU/mL (0.358-3.74); Triglycerides 108 mg/dL; Very Low Density Lipoprotein 22 mg/dL (5-40)
== END 2023-05-16 23:59 | disposition home or self-care (01) ==
LOC: MTLAB 10:08
PROVIDERS: PCP Family Medicine; Referring Provider Family Medicine; Visit Provider Family Medicine
DX: I48.92 Unspecified atrial flutter (principal); E55.9 Vitamin D deficiency, unspecified; R53.83 Other fatigue; R00.2 Palpitations
CPT/HCPCS: 36415; 80053; 80061; 82306; 83735; 84443; 85025

== ENCOUNTER 2023-06-12 17:30 | Outpatient (RCR) | payer SELFPAY | END 2023-06-17 23:59 | LOC: NS 17:30 | PROVIDERS: PCP Family Medicine | DX: Z71.3 Dietary counseling and surveillance (principal) ==

== ENCOUNTER → 2023-09-03 | Outpatient (CLI) | payer MEDICARE, OTHER, SELFPAY ==
--- NOTE | 2023-09-03 11:45 | RAD_ITS ---
STUDY: X-RAY CHEST REASON FOR EXAM: Female, 77 years old. DIZZINESS TECHNIQUE: PA and lateral views of the chest. COMPARISON: 11/15/2021 FINDINGS: The lungs are clear and expanded. There is no demonstrated pleural abnormality. Normal size heart. Normal mediastinum and all. Normal visualized pulmonary arteries. Normal visualized aortic arch and descending thoracic aorta. There is a dextroscoliosis of the thoracic spine. Normal visualized ribs, clavicles, and shoulders. There is no demonstrated abnormality of the visualized soft tissue structures of the upper abdomen. RAD/Chest PA and Lateral IMPRESSION: No active disease. Electronically Signed: Franco Fall MD at 9:19 EDT ,
[2023-09-03 14:57] LABS: Absolute Lymphocyte Count 2.04 X10^3/uL (0.83-4.51); Absolute Neutrophil Count 4.4 X10^3/uL (2.0-7.7); Basophil# 0.03 X10^3/uL; Basophil% 0.4 % (0-1); Eosinophil# 0.06 X10^3/uL; Eosinophils% 0.8 % (0-5); Hematocrit 46.7 % (37-47); Hemoglobin 15.8 g/dL (12.0-15.0); Lymphocyte # 2.04 X10^3/ul (0.83-4.51); Lymphocyte % 27.6 % (19-41); Mean Corp Hgb Conc 33.8 g/dL (32-36); Mean Corpuscular Hgb 32.6 pg (27.0-32.0); Mean Corpuscular Volume 96.5 fL (81-99); Mean Platelet Vol. 11.6 fl (6.2-12.0); Monocyte# 0.79 X10^3/uL; Monocyte% 10.7 % (0-10); NRBC Flagged by Analyzer 0 % (0-5); Neutrophil # 4.43 X10^3/uL (2.7-7.7); Platelet Count 171 K/mm3 (150-450); RBC Distribution Width CV 12.7 % (11.6-14.6); RBC Distribution Width SD 45.5 fl (35.1-43.9); Red Blood Count 4.84 M/mm3 (4.2-5.4); White Blood Count 7.4 K/mm3 (4.4-11.0)
[2023-09-03 15:09] LABS: Anion Gap 10 (5-15); BUN 18 mg/dL (7-18); Calcium,Total 9.3 mg/dL (8.5-10.1); Chloride 100 mmol/L (98-107); Creatinine, Serum 0.78 mg/dL (0.55-1.02); EST Glomerular Filtration Rate 76 mL/min (>60); Est Glom Filt Rate - Afr Amer 92 mL/min (>60); Glucose 100 mg/dL (74-106); Potassium 4.2 mmol/L (3.5-5.1); Sodium Level 135 mmol/L (136-145)
== END | disposition home or self-care (01) ==
LOC: MTLAB 11:44
PROVIDERS: PCP Family Medicine; Referring Provider Family Medicine; Visit Provider Family Medicine
DX: R42 Dizziness and giddiness (principal)
CPT/HCPCS: 36415; 71046; 80048; 85025

== ENCOUNTER 2024-09-07 17:46 | Emergency (ER) | payer MEDICARE, OTHER, SELFPAY ==
[2024-09-07 17:46] VITALS: BP 134/99; PULSE 37; RESP 18; TEMP 36.3; O2SAT 97; BMI 25.9
--- NOTE | 2024-09-07 17:56 | EKG12_ITS ---
Test Reason : CHEST PAIN Blood Pressure : */* mmHG Vent. Rate : 58 BPM Atrial Rate : * BPM P-R Int : * ms QRS Dur : 104 ms QT Int : 438 ms P-R-T Axes : * -46 40 degrees QTcB Int : 429 ms Atrial fibrillation with slow ventricular response Incomplete right bundle branch block Left anterior fascicular block Abnormal ECG Confirmed by Adam Haas ([id number]), editor news ERIC AVENDANO ([id number]) on 09/08/2024 1:58:39 PM Referred By: Confirmed By: Adam Haas
--- NOTE | 2024-09-07 18:08 | EDS_ITS ---
HPI History of Present Illness Chief Complaint: Chest Pain [facility] Medical History History of left heart catheterization (LHC) (~11/22/21) Migraine without aura and without status migrainosus, not intractable Vision problems Heart murmur Hx of headache Hx of cataract UTI (urinary tract infection) History of back problems Atrial fibrillation Pure hypercholesterolemia Status post left heart catheterization (LHC) (~08/04/18) Abnormal stress echocardiogram Non-rheumatic tricuspid valve insufficiency Nonrheumatic mitral (valve) insufficiency Palpitations Nonrheumatic mitral (valve) prolapse SOB (shortness of breath) Chest pain Atrial premature depolarization Ventricular premature depolarization Home Medications Medication Instructions Recorded Last Taken Type omega-3 fatty acids 1,000 mg 2,000 mg PO DAILY SUPPLEM ENT 07/01/17 11/14/21 History capsule (Fish Oil Concentrate) glucosamine sulfate 500 mg tablet 1,000 mg PO QHS 06/1811/14/21 History (Glucosamine) lactobacillus combination no.8 3 3,000 mmu cells PO DA [place] 07/08/18 11/14/21 History billion cell capsule (Adult MAINTENANCE Probiotic) ascorbic acid (vitamin C) 1,000 mg 1 g PO DAILY supple ment 09/29/19 11/14/21 History tablet CalciAIM (Ca, Mg, vit C & D) 1 tspn PO DAILY SUPPLEMEN T 04/17/21 11/14/21 History barley juice powder 1 tspn PO DAILY supplement 0 04/17/21 11/14/21 History pea protein powder 1 tspn PO DAILY SUPPLEMENT 0 04/17/21 11/14/21 History coenzyme Q10 60 mg capsule 120 mg PO DAILY SUPPLEMENT 09/20/21 11/14/21 History acetaminophen 500 mg tablet 500 - 1,000 mg PO DAILY PA N Pain 11/15/21 3 Days Ago History ~11/12/21 zinc acetate 50 mg (zinc) capsule 50 mg PO DAILY SUPPL EMENT 11/15/21 11/14/21 History cholecalciferol (vitamin D3) 50 5,000 mcg PO DAILY SUP PLEMENT 12/27/22 Unknown History mcg (2,000 unit) tablet vitamin B complex (B 1 tab PO DAILY 12/27/22 Unkn own History Complex-Vitamin B12 tablet) methylprednisolone 4 mg tablets in See Rx Instructions PO PER PKG DIR 08/25/23 Unknown Rx a dose pack (Medrol (Enzo)) #21 tabs amoxicillin 500 mg tablet 2,000 mg (4 x 500 mg) PO ONC E #4 12/15/23 Unknown Rx tabs apixaban 5 mg tablet (Eliquis) 5 mg PO BID #180 tabs 1 03/21/23 Unknown Rx fludrocortisone 0.1 mg tablet See Rx Instructions .Rou te 05/25/24 Unknown Rx .COMPLEX #25 tabs Allergy/AdvReac Type Severity Reaction Status Date / Time No Known Allergies Allergy Verified 09/07/24 17:48 Family History Father CVA (cerebral vascular accident) Alcoholism Blood clot in vein Respiratory disease Mother Depression Thyroid disorder Grandmother Diabetes Brother Heart disease Surgical History H/O dilation and curettage History of radiofrequency ablation procedure for cardiac arrhythmia (~03/29/22) History of cardioversion (~01/18/21) History of tonsillectomy and adenoidectomy Social History Smoking Status: Never smoker second hand exposure: No alcohol intake: never substance use type: does not use what type of physical activity do you participate in: none and walking frequency: daily juice/voodoo: Hindu seatbelt use: always EXAM Physical Exam Const Vital Signs: 09/07/24 17:46 09/07/24 18:46 09/07/24 19:00 Temperature 97.4 F L Temperature Source Temporal Pulse Rate 37 L 53 L 50 L Respiratory Rate 18 99 H 18 Respiratory Effort Blood Pressure 134/99 H 124/91 H 124/91 H Blood Pressure Mean 110 102 102 Pulse Ox 97 100 Oxygen Delivery Method Room Air Room Air 09/07/24 19:16 09/07/24 19:17 09/07/24 20:00 Temperature Temperature Source Pulse Rate 48 L Respiratory Rate 15 Respiratory Effort Normal Blood Pressure 138/85 H Blood Pressure Mean 102 Pulse Ox 99 Oxygen Delivery Method Room Air Room Air 09/07/24 21:00 09/07/24 22:06 Temperature 98.2 F Temperature Source Pulse Rate 51 L 52 L Respiratory Rate 18 16 Respiratory Effort Blood Pressure 137/85 H 149/74 H Blood Pressure Mean 102 99 Pulse Ox 95 100 Oxygen Delivery Method Room Air [facility] Narrative Medical decision making narrative: HISTORY OF PRESENT ILLNESS: Chief complaint: Chest pain 78-year-old female history of A-fib on Eliquis, presents with chest pain. States chest pain began last 24 hours. It is worse with deep breath it is not exertional. It is described as heaviness or pressure but not ripping or tearing. Patient does know she undergoes frequent chiropractic relation if she underwent manipulation yesterday. Notes pain when she extends her neck. Pain is located in the throat and deeper into her chest. Denies slurred speech, numbness, tingling, loss sensation. Denies personal history of aneurysms or connective tissue diseases. Denies personal or family history of blood clots. no other PE risk factors endorsed. Patient denies sudden onset of pain, no tearing sensation, no migratory symptoms, no new numbness, weakness or loss of sensation. Patient denies family history or personal history of Connective tissue disorders (Marfan's Syndrome, Zaria Danlos etc) REVIEW OF SYSTEMS: Pertinent positives: Chest pain, sore throat Pertinent negatives: Focal weakness, syncope PHYSICAL EXAM: Nursing triage notes reviewed, Vital signs reviewed Constitutional: please see mdm HENT: MMM Eyes: Pupils equal round and reactive to light, Extraocular muscles intact Neck: No stridor, no JVD, full neck ROM, supple, no carotid bruits Lungs: Clear to auscultation, No wheezing or rales. No increased work of breathing, no conversational dyspnea, no accessory muscle use, no nasal flaring. No respiratory distress noted Heart: Regular rate and rhythm, No murmurs, No rubs and No gallops, 2+ distal pulses (radial, femoral, posterior tibial) in all extremities Abdomen: Soft, there is no tenderness, rigidity, rebound or guarding, no obvious peritoneal signs, no palpable pulsatile abdominal masses, no auscultated abdominal bruit : No CVAT Extremities: No edema Neuro: Alert and oriented x3, neuro exam at baseline, cranial nerves II through XII are intact. No pain with extraocular muscle movement. There is negative test of skew. 5 of 5 strength in upper and lower extremities in flexion extension. Intact sensation to light touch in upper and lower extremity dermatomes. No truncal or extremity ataxia. No dysdiadochokinesia. Normal gait. 2+ reflexes in upper and lower extremities. No meningeal signs. Negative Babinski. NIH of 0. Skin: No rash or lesions noted MEDICAL DECISION MAKING: Chief Complaint: please see HPI External records reviewed: Reviewed prior cardiovascular testing. Reviewed echocardiogram from 2023 which showed ejection fraction 59% Factors affecting care: as per HPI Social determinants of health: none History obtained from others: Consults: none [facility] Narrative: The patient was initially hemodynamically stable, afebrile and nontoxic- appearing. Despite the patient's heart rate being reported at 37 initially her heart rate is 58 on her initial EKG. She is afebrile. No focal cardiopulmonary abnormalities. No obvious pulse deficits. Her neck was supple. There are no carotid bruits noted. I considered the following differential diagnosis: ACS, anemia, arrhythmia, electrolyte disturbance, pneumothorax, pericarditis, PE, dissection I obtained a broad lab and imaging workup to further elucidate etiology of the patient's complaints to further determine if the patient was suffering from a life-threatening etiology. ALL IMAGES (IF OBTAINED) HAVE BEEN PERSONALLY REVIEWED AND INTERPRETED BY MYSELF. EKG with rate controlled A-fib rate of 58, left axis deviation, no STEMI, when compared with prior has a similar morphology CBC without leukocytosis, severe anemia, no thrombocytopenia. High-sensitivity troponin is negative, no evidence of myocardial ischemia x2 ruling out ACS per [facility] high-sensitivity protocol D-dimer negative making VTE and dissection much less likely X-ray was read reviewed by myself and showed no evidence of obvious heart failure or pneumonia or pneumothorax X-ray of the shoulder was also read and reviewed by myself showed no evidence of obvious fracture dislocation radiologist noted mild arthrosis BMP without evidence of significant electrolyte abnormalities, no anion gap, no acute kidney injury. The synthesis of the patient's history, physical exam, labs images suggest no acute life-threatening etiology specifically no sign of VTE, dissection, ACS. The patient is appropriate discharge home with close outpatient follow-up for confirmatory testing in the form of stress test and echocardiogram. Strict return precautions were discussed. The patient and/or family, caregivers express understanding. The patient and/or family, caregivers agrees with the plan. Shared decision making: I will have a discussion with the patient and or visitors regarding risk/benefits of further testing or admission. They will be made aware of of the risk/benefits inherent in this decision they will be given the opportunity to voice understanding. Total critical care time today provided was at least 0 minutes. This excludes separately billable procedures. Critical care time (if documented) is secondary to the patient having high probability of clinically significant/life threatening deterioration in the patient's condition which required my urgent intervention. Impression: 1. Chest pain 2. History of A-fib on Eliquis Dispo: Discharge home This note was generated with [employer] dictation software. It may contain incorrect words, spelling, and punctuation that were not noted in review of the chart prior to signing. Lab Data Labs: Laboratory Results - last 24 hr 09/07/24 09/07/24 09/07/24 18:00 18:50 20:19 WBC 8.5 RBC 4.47 Hgb 14.5 Hct 42.6 MCV 95.3 MCH 32.4 H MCHC 34.0 RDW Std Deviation 44.7 H RDW Coeff of Karina 12.7 Plt Count 156 MPV 11.2 Immature Gran % (Auto) 0.500 Neut % (Auto) 66.0 Lymph % (Auto) 23.8 Leslie % (Auto) 8.6 Eos % (Auto) 0.6 Baso % (Auto) 0.5 Absolute Neuts (auto) 5.6 Absolute Lymphs (auto) 2.03 Nucleated RBC % 0 D-Dimer Quant (PE/DVT) < 0.27 L Sodium 139 Potassium 4.0 Chloride 103 Carbon Dioxide 22.2 Anion Gap 13 BUN 20 H Creatinine 0.69 L Estim Creat Clear Calc 51.83 Est GFR (MDRD) Non-Af 89 BUN/Creatinine Ratio 29.3 H Glucose 92 Calcium 9.7 Troponin T High Sens 6 Troponin T Hi Sens 2 Hr 7 Radiography Chest X-Ray - ED: Read by ED Physician Diagnostic Testing: Clinical Impression(s) from Imaging Studies Chest X-Ray 09/07/24 18:34 IMPRESSION: No Acute Findings. Reading Location: [facility] Shoulder X-Ray 09/07/24 19:12 IMPRESSION: No acute osseous abnormalities. Mild osteoarthrosis. Reading Location: [facility] Discharge Plan Triage Chief Complaint: Chest Pain ED Provider: Campbell Rojas Dx/Rx/DC Orders Clinical Impression: Chest pain Instructions: ED Chest Pain, Uncertain Cause Prescriptions: No Action omega-3 fatty acids [Fish Oil Concentrate] 1,000 mg capsule 2,000 mg PO DAILY Adult Probiotic 3 billion cell capsule 3,000 mmu cells PO DAILY glucosamine sulfate [Glucosamine] 500 mg tablet 1,000 mg PO QHS ascorbic acid (vitamin C) 1,000 mg tablet 1 g PO DAILY barley juice powder 1 tspn PO DAILY pea protein powder 1 tspn PO DAILY CalciAIM (Ca, Mg, vit C & D) 1 tspn PO DAILY coenzyme Q10 60 mg capsule 120 mg PO DAILY cholecalciferol (vitamin D3) 50 mcg (2,000 unit) tablet 5,000 mcg PO DAILY vitamin B complex [B Complex-Vitamin B12] Tablet 1 tab PO DAILY methylprednisolone [Medrol (Enzo)] 4 mg tablets,dose pack See Rx Instructions PO PER PKG DIR Qty: 21 0RF Rx Instructions: PO PER PKG DIR fludrocortisone 0.1 mg tablet See Rx Instructions .ROUTE .COMPLEX Qty: 25 7RF Rx Instructions: Take 1 tablet orally in the morning every Mon, Tue, Wed, Fri, and Sat. acetaminophen 500 mg Tablet 500 - 1,000 mg PO DAILY PRN (Reason: Pain) zinc acetate 50 mg (zinc) Capsule 50 mg PO DAILY amoxicillin 500 mg tablet 2,000 mg PO ONCE Qty: 4 2RF Rx Instructions: 1 hour prior to dental work Eliquis 5 mg tablet 5 mg PO BID Qty: 180 4RF Primary Care Provider: Vicente Huerta Referrals: Vicente Huerta MD [Primary Care Provider] - Activity Restrictions/Additional Instructions: Thank you for trusting us with your care today! Your labs and images are reassuring. Specifically no sign of blood vessel abnormalities, heart damage or heart failure. Please take Tylenol (2 pills, 650 mg), ibuprofen (2 pills, 400 mg) every 6 hours as needed for pain and fever control. Please return to the emergency department if your symptoms change or worsen. Please follow with your primary care physician for further outpatient evaluation and management. Print Language: Bulgarian Disposition Disposition: Home, Self Care Discharge Date/Time: 09/07/24 22:12
[2024-09-07 18:20] LABS: Hematocrit 42.6 % (37-47); Hemoglobin 14.5 g/dL (12.0-15.0); Immature Granulocytes Count 0.040 X10^3/uL (0.0-0.0); Mean Corp Hgb Conc 34.0 g/dL (32-36); Mean Corpuscular Volume 95.3 fL (81-99); Mean Platelet Vol. 11.2 fl (6.2-12.0); NRBC Flagged by Analyzer 0 % (0-5); Platelet Count 156 K/mm3 (150-450); RBC Distribution Width CV 12.7 % (11.6-14.6); RBC Distribution Width SD 44.7 fl (35.1-43.9); Red Blood Count 4.47 M/mm3 (4.2-5.4); White Blood Count 8.5 K/mm3 (4.4-11.0)
--- NOTE | 2024-09-07 18:34 | RAD_ITS ---
PROCEDURE: CHEST 1 VIEW (PORTABLE) 09/07/2024 REASON FOR EXAM: CHEST PAIN TECHNIQUE: Frontal view of the chest. COMPARISON: 09/04/2023. FINDINGS: The cardiomediastinal silhouette is unremarkable. Right basilar linear opacity which may represent mild atelectasis or scar. The lungs are otherwise clear. No acute osseous abnormalities. RAD/Chest 1 View (Portable) IMPRESSION: No Acute Findings. Reading Location: [id number]
[2024-09-07 18:46] VITALS: BP 124/91; PULSE 53; RESP 99
[2024-09-07 19:00] VITALS: BP 124/91; PULSE 50; RESP 18; O2SAT 100
--- NOTE | 2024-09-07 19:12 | RAD_ITS ---
PROCEDURE: SHOULDER MIN 2 VIEWS 09/07/2024 REASON FOR EXAM: PAIN TECHNIQUE: SHOULDER MIN 2 VIEWS COMPARISON: None. FINDINGS: No evidence of acute fracture or dislocation. Mild glenohumeral degenerative changes. No acute soft tissue abnormalities. RAD/Shoulder min 2 Views IMPRESSION: No acute osseous abnormalities. Mild osteoarthrosis. Reading Location: [id number]
[2024-09-07 19:15] LABS: Troponin T High Sensitivity 6 ng/L (<=14)
[2024-09-07 19:18] LABS: Anion Gap 13 (5-15); BUN 20 mg/dL (4-19); BUN/Creat Ratio 29.3 RATIO (10-20); Calcium,Total 9.7 mg/dL (7.6-11.0); Carbon Dioxide 22.2 mmol/L (21.0-32.0); Chloride 103 mmol/L (98-108); Estimated Creatinine Clearance 51.83 ml/min (50-250); Glucose 92 mg/dL (70-99); Potassium 4.0 mmol/L (3.3-5.1)
[2024-09-07 19:52] LABS: D-Dimer Quantitative (DVT/PE) < 0.27 FEU/ug/m (0.27-0.49)
[2024-09-07 20:00] VITALS: BP 138/85; PULSE 48; RESP 15; O2SAT 99
[2024-09-07 21:00] VITALS: BP 137/85; PULSE 51; RESP 18; O2SAT 95
[2024-09-07 21:03] LABS: Troponin T High Sens 2 HR 7 ng/L (<=14)
[2024-09-07 22:06] VITALS: BP 149/74; PULSE 52; RESP 16; TEMP 36.8; O2SAT 100
== END 2024-09-07 22:12 | disposition home or self-care (01) ==
PROVIDERS: Emergency Provider Emergency Medicine; PCP Family Medicine; Visit Provider Emergency Medicine
DX: R07.9 Chest pain, unspecified (principal); I48.91 Unspecified atrial fibrillation; Z79.01 Long term (current) use of anticoagulants
CPT/HCPCS: 71045; 73030; 80048; 84484; 85025; 85379; 93005; 99283; A4216

== ENCOUNTER → 2025-02-02 | Outpatient (CLI) | payer MEDICARE, OTHER, SELFPAY ==
[2025-02-02 12:09] LABS: Hematocrit 43.5 % (37-47); Hemoglobin 14.4 g/dL (12.0-15.0); Mean Corp Hgb Conc 33.1 g/dL (32-36); Mean Corpuscular Volume 98.2 fL (81-99); Mean Platelet Vol. 11.3 fl (6.2-12.0); Platelet Count 160 K/mm3 (150-450); RBC Distribution Width CV 12.5 % (11.6-14.6); RBC Distribution Width SD 45.2 fl (35.1-43.9); Red Blood Count 4.43 M/mm3 (4.2-5.4); White Blood Count 6.8 K/mm3 (4.4-11.0)
[2025-02-02 12:53] LABS: Anion Gap 12 (5-15); BUN 17 mg/dL (4-19); BUN/Creat Ratio 23.8 RATIO (10-20); Calcium,Total 10.0 mg/dL (7.6-11.0); Carbon Dioxide 25.6 mmol/L (21.0-32.0); Chloride 103 mmol/L (98-108); Glucose 91 mg/dL (70-99); Potassium 3.9 mmol/L (3.3-5.1)
== END | disposition home or self-care (01) ==
LOC: LAB 10:45
PROVIDERS: PCP Family Medicine; Referring Provider Internal Medicine Cardiovascular Disease; Visit Provider Internal Medicine Cardiovascular Disease
DX: I48.91 Unspecified atrial fibrillation (principal); I95.1 Orthostatic hypotension
CPT/HCPCS: 36415; 80048; 85027